=== PATIENT | female | born 1940 | race Caucasian/White ===

== ENCOUNTER 2018-11-19 14:14 | Emergency (ER) | payer MEDICARE, OTHER ==
--- OUTSIDE RECORDS SUMMARY | 2018-11-19 14:32 | XMS REPORT | Continuity of Care Document ---
:1940 External Reference #:[id number] Author Name Ramirez Patiño MD Address [address] [place] [address] Care Team Providers Name Role Phone Ramirez Patiño MD Primary Care Physician Unavailable Payers Date Identification Numbers Payment Provider Subscriber Effective: 2003 Policy Number: [id number] Medicare Part B [place] Group Name: [facility] [address] PayID: [id number] [place] [address] Effective: 2016 Policy Number: [id number] [employer] [place] Group Number: [id number] [address] [address] Group Name: [place] [address] PayID: [id number] Problems Active Problems Provider Date Hyperlipidemia Ramirez Patiño MD Onset: 07/18/2017 Hypothyroidism Ramirez Patiño MD Onset: 07/18/2017 Family History Date Family Member(s) Observation Comments Father due to Old Age () Father Cancer, Prostate Father due to Natural Causes () Mother due to Septicemia () Mother Cancer, Breast Mother due to Natural Causes () Mother DVT Mother Allergies First Brother Heart Disease Second Brother due to Aneurysm, Cerebral () First Sister Asthma Second Sister Aneurysm, Cerebral Third Sister Allergies Social History Type Date Description Comments Sex Unknown Marital Status ETOH Use Denies alcohol use Tobacco Use Reviewed: 08/05/18 Patient has never smoked Smoking Status Reviewed: 08/05/18 Patient has never smoked Allergies, Adverse Reactions, Alerts Active Allergies Reaction Severity Comments Date PCN Diffuse Swelling. 02/09/2003 Penicillin 01/26/2018 Inactive Allergies NKDA 11/04/2014 Medications Active Medications SIG Qnty Indications Ordering Provider Date Atorvastatin Calcium Take 1 Tablet 90tabs Nikkieavamykel, Digant 02/19/2018 10mg Daily MD Erma Tablets Levothyroxine Sodium Take 1 Tablet 90tabs Nikkieavamykel, Digant 03/04/2017 Daily MD Erma 88mcg Tablets Ranitidine HCL take 1 tablet 180tabs Nanavati, Digant 09/20/2015 150mg by mouth 2 MD Erma Tablets times daily Multiple Vitamin 90tabs Nikkieavamykel, Digant 11/08/2014 Tablets MD Erma Sertraline HCL Take 1 Tablet 90tabs Nikkieavati, Digant 11/08/2014 50mg Daily MD Erma Tablets History Medications Shingrix 0.5 milliliters 2unkaroline Patiño, 10/15/2017 - 50mcg intramuscular now Ramirez Ritchie MD 01/26/2018 Suspension Rec and 6 month later Zostavax 1 dose 1units Haroon, 09/20/2015 - intramuscular x 1 Ramirez Ritchie MD 11/14/2015 [id number]/0.65ML Solution Rec Levoxyl take 1 tablet daily 90tabs Haroon, 11/08/2014 - 88mcg Tablets Ramirez Ritchie MD 03/04/2017 Oxybutynin Chloride 1 by mouth every 90tabs Haroon, 11/08/2014 - ER day Ramirez Ritchie MD 07/03/2016 10mg Tablets ER 24HR [facility] Other Provider 11/08/2014 - 10mg Tablets 11/08/2014 Lortab 1 tab every 6 hours 30tabs Haroon, 11/08/2014 - 5-325mg as needed severe Ramirez Ritchie MD 01/15/2017 Tablets pain Gabapentin 1 by mouth three 90caps Haroon, 11/08/2014 - 300mg times a day Ramirez Ritchie MD 07/03/2016 Capsules Omeprazole 1 by mouth every 30caps Haroon, 11/08/2014 - 40mg day Ramirez Ritchie MD 09/20/[address] Sen 1 by mouth every Nanavamykel, 11/08/2014 - 5mg Tablets day Ramirez Ritchie MD 09/20/2015 Actonel 1 by mouth every endo Una Olvera, 11/04/2014 - 35mg Tablets week STAFF APPRAISER 07/03/2016 Ambien 1/2-1 po qhs prn 30tabs 307.41 Kenn Escobar 01/09/2005 - 10mg Tablets sleep 02/19/2018 Butalbital & Kenn Escobar 10/08/2004 - Acetaminophen 10/08/2004 50mg;325 mg Tablets Butalbital 1-2 po bid prn griggs Kenn Escobar 10/08/2004 - Acetaminophen & 02/19/2018 Caffeine 50mg;40mg;325MG Tablets Physical Therapy hip pain/leg pain Shantel Cesar 08/08/2004 - (719.45): evaluate JJ Ruiz 11/05/2004 and treat as needed Physical Therapy dx+sciatica LEFT Shantel Cesar 05/15/2004 - Leg JJ Ruiz 11/05/2004 plan: evaluate & treat Skelaxin One-Two Tabs Q 6-8 40tabs 846.0 Kenn Escobar 12/07/2003 - 400mg HRSPRN 11/05/2004 Tablets Elavil One PO QHS 90tabs Shantel Cesar 11/21/2003 - 10mg Tablets JJ Ruiz 02/19/2018 [place] Thyroid one tab po qd 90tabs Kenn Escobar 09/19/2003 - 90mg 02/19/2018 Tablets Maxzide-25 1 po qam 30tabs 782.3 Kenn Escobar 09/16/2003 - 25mg;37.5 11/21/2003 mg Tablets Celebrex 1 PO bid prn 180caps 846.0 Kenn Escobar 09/16/2003 - 200mg 02/19/2018 Capsules Ambien one to two po qhs 30tabs 307.41 Kenn Escobar 03/10/2003 - 5mg Tablets prn sleep 01/09/2005 Miralax mix as directed prn Onejar 564.00 Shantel Cesar 03/10/2003 - 255gm Powder constipation JJ Ruiz 11/21/2003 Prilosec 1 PO qd 30caps 530.81 Kenn Escobar 12/24/2002 - 20mg Caps 02/19/2018 Maxzide 1 po qam 30tabs 782.3 Kenn Escobar 12/24/2002 - 37.5/25 Tabs 03/10/2003 Elavil 90tabs V70.0 Shantel Cesar 11/10/2002 - 10mg Tablets JJ Ruiz 12/21/2003 Butalbital/Apap/Caff 1-2 po q 4 hrs.prn 90tabs 379.91 Kenn Escobar, 03/2003 - eine 10/08/2004 Tabs Flonase 1 [place] Each 3units Kenn sEcobar, 10/13/2002 - Inhaler Nostril qd 02/19/2018 Celebrex 1 po bid prn 180units Kenn Escobar, 09/02/2002 - 200mg 11/21/2003 Premarin One PO qd 0units Kenn Escobar, 09/02/2002 - .625 02/19/2018 Neurontin 1-2 Caps Q8HR prn 180tabs Kenn Escobar, 09/02/2002 - 100mg 02/19/2018 Tablets Zoloft one qd 90units Kenn Escobar, 09/02/2002 - 50mg 02/19/2018 Lanoxin 1 po qd 30units Kenn Escobar, 09/02/2002 - .25mg 11/05/2004 Diflucan one tab po times 0tabs Kenn Escobar, 09/02/2002 - 150mg Tablet one day 03/10/2003 Deconamine SR Two PO qd prn 180tabs Kenn Escobar, 07/23/2002 - 8mg 02/19/2018 Tablets Celebrex One PO qam 90units Kenn Escobar, 07/23/2002 - 100mg 09/02/2002 Fioricet one - two po q4h 30units Kenn Escobar, 07/23/2002 - prn 03/10/2003 [place] Thyroid 1 tab po qd 30units Shantel Cesar 05/11/2002 - 60mg JJ Ruiz 11/21/2003 Zyrtec One qd 90units Kenn Escobar, 05/07/2002 - 10mg 02/19/2018 Miacalcin one spray 1units Kenn Escobar, 05/07/2002 - Inhaler alternating nares q 03/10/2003 day Actonel One Tablet Q Week 12tabs 307.41 Kenn Escobar, - 35mg Tablets (Sundays) 02/19/2018 Hydrocodone-Acetamin 1 every 6 hours as Unknown - ophen needed 02/19/2018 5-325mg Tablets Medications Administered in Office Medication SIG Qnty Indications Ordering Provider Date Prolia 60 mg/ml Infusion, Schedule 07/13/2018 Injection Prolia 60 mg/ml Infusion, Schedule 01/07/2018 Injection Immunizations CPT Code Status Date Vaccine Reaction Lot # [id number] Given 02/19/2018 Fluzone Highdose Age 65 And [id number] Over Preservative & Antibiotic Free 01971 Given 01/13/2018 Shingrix (Shingles) Zoster Vaccine HZV, Recombinant, Subunit, Adj 41286 Given 10/15/2017 Shingrix (Shingles) Zoster Vaccine HZV, Recombinant, Subunit, Adj 41126 Given 04/17/2017 Pneumococcal 23 Immunization Pt tolerated well [id number] Adult Or Immunosuppressed Patient 94704 Given 04/17/2017 Fluzone Highdose Age 65 And Pt tolerated well [id number] Over Preservative & Antibiotic Free 95734 Given 07/03/2016 Fluzone Highdose Age 65 And [id number] Over Preservative & Antibiotic Free 27779 Given 09/20/2015 Tdap (Adacel) Ages 7 And Above [id number] Only 77400 Given 03/22/2015 Influenza Vac, Quadrivalent, [id number] Split, 0.5mL Dosage, Im Use 19420 Given 03/22/2015 Prevnar 13 Pneumococal [id number] Conjugate Vaccine 51030 Given 05/15/2004 Afluria Or Fluvirin Flu Vac Intramuscular 63810 Given 05/02/2003 Afluria Or Fluvirin Flu Vac Intramuscular 91695 Given 05/02/2003 Afluria Or Fluvirin Flu Vac Intramuscular 21566 Given 05/07/2002 Passive Immunization, Isg Deleted 1998 51476 Given 05/07/2002 Afluria Or Fluvirin Flu Vac Intramuscular 46999 Given 05/14/2001 Afluria Or Fluvirin Flu Vac Intramuscular 40187 Given 05/16/2000 Influenza Virus Vaccine, Whole Virus, Intramuscular Or Jet Inj. Vital Signs Date Vital Result Comment 10/26/2018 1:24pm Body Temperature 97.4 F Weight 145.00 lb Heart Rate 75 /min BP Systolic 118 mmHg BP Diastolic 72 mmHg Respiratory Rate 16 /min Height 62 inches 5'2" O2 % BldC Oximetry 99 % BMI (Body Mass Index) 26.5 kg/m2 08/05/2018 11:18am Body Temperature 97.3 F Weight 144.00 lb Heart Rate 92 /min BP Systolic 122 mmHg BP Diastolic 80 mmHg Respiratory Rate 16 /min Height 62 inches 5'2" O2 % BldC Oximetry 99 % BMI (Body Mass Index) 26.3 kg/m2 07/15/2018 9:44am Body Temperature 97.2 F Weight 145.00 lb Heart Rate 76 /min BP Systolic 120 mmHg BP Diastolic 74 mmHg Respiratory Rate 16 /min Height 62 inches 5'2" O2 % BldC Oximetry 98 % BMI (Body Mass Index) 26.5 kg/m2 07/13/2018 1:47pm Body Temperature 98.8 F Weight 148.00 lb Heart Rate 81 /min BP Systolic 122 mmHg BP Diastolic 74 mmHg O2 % BldC Oximetry 98 % 06/01/2018 10:08am Weight 143.00 lb Heart Rate 90 /min BP Systolic 122 mmHg BP Diastolic 80 mmHg Respiratory Rate 16 /min Height 62 inches 5'2" O2 % BldC Oximetry 98 % BMI (Body Mass Index) 26.2 kg/m2 02/19/2018 1:48pm Body Temperature 97.2 F Weight 137.00 lb Heart Rate 80 /min BP Systolic 128 mmHg BP Diastolic 70 mmHg Respiratory Rate 16 /min Height 62 inches 5'2" O2 % BldC Oximetry 97 % BMI (Body Mass Index) 25.1 kg/m2 01/26/2018 8:33am Weight 139.00 lb Heart Rate 82 /min BP Systolic 133 mmHg BP Diastolic 86 mmHg Respiratory Rate 16 /min Height 62 inches 5'2" O2 % BldC Oximetry 98 % BMI (Body Mass Index) 25.4 kg/m2 01/07/2018 3:33pm Body Temperature 99.1 F Weight 136.00 lb Heart Rate 71 /min BP Systolic 132 mmHg BP Diastolic 88 mmHg O2 % BldC Oximetry 97 % 10/15/2017 10:16am Body Temperature 98.3 F Weight 140.00 lb Heart Rate 76 /min BP Systolic 100 mmHg BP Diastolic 64 mmHg Respiratory Rate 16 /min Height 62 inches 5'2" O2 % BldC Oximetry 96 % BMI (Body Mass Index) 25.6 kg/m2 07/18/2017 11:22am Body Temperature 97.6 F Weight 140.00 lb Heart Rate 92 /min BP Systolic 114 mmHg BP Diastolic 76 mmHg Respiratory Rate 16 /min Height 62 inches 5'2" O2 % BldC Oximetry 95 % BMI (Body Mass Index) 25.6 kg/m2 04/17/2017 11:41am Body Temperature 97.0 F Weight 141.00 lb Heart Rate 83 /min BP Systolic 118 mmHg BP Diastolic 67 mmHg Respiratory Rate 16 /min Height 62 inches 5'2" O2 % BldC Oximetry 97 % BMI (Body Mass Index) 25.8 kg/m2 01/15/2017 10:56am Body Temperature 97.4 F Weight 141.00 lb Heart Rate 82 /min BP Systolic 120 mmHg BP Diastolic 72 mmHg Respiratory Rate 16 /min Height 62 inches 5'2" O2 % BldC Oximetry 96 % BMI (Body Mass Index) 25.8 kg/m2 12/02/2016 10:09am Body Temperature 97.5 F Weight 140.31 lb Heart Rate 85 /min BP Systolic 147 mmHg BP Diastolic 81 mmHg Respiratory Rate 16 /min Height 62 inches 5'2" O2 % BldC Oximetry 97 % BMI (Body Mass Index) 25.7 kg/m2 07/03/2016 1:54pm Body Temperature 98.4 F Weight 140.00 lb Heart Rate 84 /min BP Systolic 122 mmHg BP Diastolic 80 mmHg Respiratory Rate 16 /min Height 62 inches 5'2" O2 % BldC Oximetry 97 % BMI (Body Mass Index) 25.6 kg/m2 12/06/2015 11:45am Body Temperature 98.6 F Weight 140.00 lb Heart Rate 82 /min BP Systolic 124 mmHg BP Diastolic 74 mmHg Respiratory Rate 16 /min Height 62 inches 5'2" O2 % BldC Oximetry 97 % BMI (Body Mass Index) 25.6 kg/m2 11/28/2015 10:07am Body Temperature 98.2 F Weight 140.00 lb Heart Rate 87 /min BP Systolic 126 mmHg BP Diastolic 78 mmHg Respiratory Rate 16 /min Height 62 inches 5'2" O2 % BldC Oximetry 96 % BMI (Body Mass Index) 25.6 kg/m2 11/14/2015 11:00am Body Temperature 99.0 F Weight 138.00 lb Heart Rate 83 /min BP Systolic 120 mmHg BP Diastolic 86 mmHg Respiratory Rate 16 /min Height 62 inches 5'2" O2 % BldC Oximetry 96 % BMI (Body Mass Index) 25.2 kg/m2 09/20/2015 10:01am Body Temperature 99.2 F Weight 143.00 lb Heart Rate 78 /min BP Systolic 126 mmHg BP Diastolic 78 mmHg Respiratory Rate 18 /min Height 62 inches 5'2" O2 % BldC Oximetry 98 % BMI (Body Mass Index) 26.2 kg/m2 03/22/2015 10:08am Body Temperature 98.5 F Weight 138.50 lb Heart Rate 82 /min BP Systolic 130 mmHg BP Diastolic 76 mmHg Respiratory Rate 16 /min Height 62 inches 5'2" O2 % BldC Oximetry 98 % BMI (Body Mass Index) 25.3 kg/m2 12/20/2014 1:03pm Body Temperature 98.1 F Weight 140.12 lb Heart Rate 75 /min BP Systolic 122 mmHg BP Diastolic 76 mmHg Respiratory Rate 16 /min Height 62 inches 5'2" O2 % BldC Oximetry 97 % BMI (Body Mass Index) 25.6 kg/m2 11/08/2014 8:17am Weight 141.00 lb Heart Rate 69 /min BP Systolic 148 mmHg BP Diastolic 89 mmHg Height 62 inches 5'2" BMI (Body Mass Index) 25.8 kg/m2 Right Visual Acuity Distance 20/30 with glasses Left Visual Acuity Distance 20/30 11/05/2004 3:36pm Body Temperature 98.0 F Weight 136.00 lb Heart Rate 92 /min BP Systolic 122 mmHg BP Diastolic 78 mmHg Respiratory Rate 20 /min Height 62 inches 5'2" BMI (Body Mass Index) 24.9 kg/m2 Right Visual Acuity Distance 20/20 With With Out Corrective Lenses. Left Visual Acuity Distance 20/25 06/06/2004 2:28pm Body Temperature 97.0 F Heart Rate 87 /min BP Systolic 134 mmHg BP Diastolic 80 mmHg 05/15/2004 1:21pm Weight 129.00 lb BP Systolic 142 mmHg BP Diastolic 96 mmHg 12/21/2003 8:45am Body Temperature 120.0 F BP Systolic 128 mmHg BP Diastolic 78 mmHg 12/07/2003 3:40pm Body Temperature 97.5 F Heart Rate 84 /min BP Systolic 132 mmHg BP Diastolic 88 mmHg Respiratory Rate 16 /min 11/21/2003 10:13am Weight 134.00 lb CV=605/35 500/40 1000/40 8000/40 Heart Rate 90 /min ZW=880/35 500/35 1000/45 2000/35 8000/55 BP Systolic 118 mmHg BP Diastolic 80 mmHg Respiratory Rate 16 /min Urine Dipstick - Blood NEGATIVE Urine Dipstick - Protein NEGATIVE Urine Dipstick - Glucose NEGATIVE 11/01/2003 2:16pm Body Temperature 98.0 F Heart Rate 88 /min BP Systolic 130 mmHg BP Diastolic 86 mmHg Respiratory Rate 24 /min 03/10/2003 12:47pm BP Systolic 122 mmHg BP Diastolic 74 mmHg 02/09/2003 10:26am BP Systolic 114 mmHg BP Diastolic 76 mmHg 01/14/2003 10:58am BP Systolic 112 mmHg BP Diastolic 70 mmHg 12/31/2002 11:12am BP Systolic 108 mmHg BP Diastolic 64 mmHg 12/24/2002 12:34pm BP Systolic 128 mmHg BP Diastolic 86 mmHg 11/10/2002 8:25am Weight 138.00 lb Heart Rate 88 /min BP Systolic 104 mmHg BP Diastolic 72 mmHg Respiratory Rate 18 /min Urine Dipstick - Blood NEGATIVE Urine Dipstick - Protein NEGATIVE Urine Dipstick - Glucose NEGATIVE Left Visual Acuity Distance 09/02/2002 2:19pm Body Temperature 97.6 F Heart Rate 80 /min BP Systolic 150 mmHg BP Diastolic 92 mmHg Results Test Date Facility Test Result H/L Range Note CBC with Auto Diff-fcmg 10/19/2018 [facility] W[facility] 4.3 K/uL 4.1-11.0 1 RBC 4.11 M/uL 4.00-5.40 Hemoglobin 13.1 gm/dL 12.0-16.0 Hematocrit 38.9 % 36.0-47.0 MCV 94.6 fL 80.0-97.0 MCH 31.9 pg 27.0-32.0 MCHC 33.7 g/dL 32.0-36.0 RDW 13.3 % 11.5-14.5 PLT Count 191 K/ul 140-400 MPV 8.9 FL 7.1-10.7 Neutrophil 44.1 % 35.0-75.0 Lymphocyte 39.3 % 16.0-52.0 Monocyte 11.5 % High 2.0-10.0 Eosinophil 4.1 % 0.0-5.0 Basophil 1.0 % 0.0-4.0 Abs Neutrophils 1.9 K/uL Low 2.1-8.0 Abs Lymphocytes 1.7 K/uL 0.8-5.5 Abs Monocytes 0.5 K/uL 0.1-1.0 Abs Eosinophils 0.2 K/uL 0.0-0.5 Abs Basophils 0.0 K/uL 0.0-0.3 Comprehensive Met Panel-[facility]G 10/19/2018 [facility] Sodium 140 mmol/L 135- 146 2 Potassium 4.4 mmol/L 3.5-5.2 Chloride# 105 mmol/L 97-110 3 Carbon Dioxide 27 mmol/L 24-34 Calcium 9.3 mg/dL 8.5-10.5 4 Glucose 91 mg/dL 70-105 BUN 12 mg/dL 6-26 Creatinine 0.8 mg/dL 0.5-1.4 Total Protein 5.9 g/dL Low 6.0-8.0 Albumin 3.9 g/dL 3.6-4.9 Globulin 2.0 g/dL 2.0-3.5 A/G Ratio 2.0 Ratio 1.0-2.2 Total Bilirubin 0.7 mg/dL 0.1-1.3 Alkaline Phosphatase 30 U/L 24-140 Alt 11 U/L 3-42 Ast 20 U/L 8-42 Anion Gap 8 mmol/L 5-15 5 Female Egfr 69 >60 6 Male Egfr 84 >60 7 Lipid 10/19/2018 [facility] Cholesterol 195 mg/dL 50-199 Triglycerides 97 mg/dL 30-200 HDL 59 mg/dL 35-85 8 Chol/ HDL Ratio 3.3 ratio Low 3.7-5.6 VLDL 19 mg/dL 2-29 LDL (Calc) 117 mg/dL High 20-99 9 Laboratory test finding 10/19/2018 [facility] Vitamin B12 427 pg/mL 180- 914 Vitamin D 25 Hydroxy 30 ng/mL 30-100 10 Laboratory test finding 07/08/2018 [facility] TSH 1.37 uIU/mL 0.35-4.94 Lipid 07/08/2018 [facility] Cholesterol 196 mg/dL 50-199 Triglycerides 115 mg/dL 30-200 HDL 58 mg/dL 35-85 11 Chol/ HDL Ratio 3.4 ratio Low 3.7-5.6 VLDL 23 mg/dL 2-29 LDL (Calc) 115 mg/dL High 20-99 12 Laboratory test finding 07/08/2018 [facility] Vitamin D 25 Hydroxy 41 ng/mL 30-100 13 Vitamin B12 456 pg/mL 180-914 Comprehensive Met Panel-[facility] 07/08/2018 [facility] Sodium 145 mmol/L 135- 146 14 Potassium 4.7 mmol/L 3.5-5.2 Chloride# 107 mmol/L 97-110 15 Carbon Dioxide 30 mmol/L 24-34 Glucose 87 mg/dL 70-105 BUN 18 mg/dL 6-26 Creatinine 0.9 mg/dL 0.5-1.4 Calcium 9.5 mg/dL 8.5-10.2 Total Protein 6.1 g/dL 6.0-8.0 Albumin 4.0 g/dL 3.6-4.9 Globulin 2.1 g/dL 2.0-3.5 A/G Ratio 1.9 Ratio 1.0-2.2 Total Bilirubin 0.7 mg/dL 0.1-1.3 Alkaline Phosphatase 35 U/L 24-140 Alt 8 U/L 3-42 Ast 15 U/L 8-42 Safia Egfr >60 >60 16 Non Safia Egfr >60 >60 17 Anion Gap 8 mmol/L 5-15 18 CBC with Auto Diff-fcmg 07/08/2018 [facility] WBC 4.2 K/uL 4.1-11.0 RBC 4.37 M/uL 4.00-5.40 Hemoglobin 13.8 gm/dL 12.0-16.0 Hematocrit 40.2 % 36.0-47.0 MCV 92.0 fL 80.0-97.0 MCH 31.6 pg 27.0-32.0 MCHC 34.3 g/dL 32.0-36.0 RDW 12.8 % 11.5-14.5 PLT Count 196 K/ul 140-400 MPV 9.0 FL 7.1-10.7 Neutrophil 45.8 % 35.0-75.0 Lymphocyte 42.0 % 16.0-52.0 Monocyte 8.7 % 2.0-10.0 Eosinophil 2.7 % 0.0-5.0 Basophil 0.8 % 0.0-4.0 Abs Neutrophils 1.9 K/uL Low 2.1-8.0 Abs Lymphocytes 1.8 K/uL 0.8-5.5 Abs Monocytes 0.4 K/uL 0.1-1.0 Abs Eosinophils 0.1 K/uL 0.0-0.5 Abs Basophils 0.0 K/uL 0.0-0.3 CBC with Auto Diff-fcmg 06/01/2018 [facility] WBC 4.2 K/uL 4.1-11.0 19 RBC 4.03 M/uL 4.00-5.40 Hemoglobin 12.8 gm/dL 12.0-16.0 Hematocrit 37.1 % 36.0-47.0 MCV 92.1 fL 80.0-97.0 MCH 31.9 pg 27.0-32.0 MCHC 34.7 g/dL 32.0-36.0 RDW 12.7 % 11.5-14.5 PLT Count 203 K/ul 140-400 MPV 8.8 FL 7.1-10.7 Neutrophil 43.4 % 35.0-75.0 Lymphocyte 44.0 % 16.0-52.0 Monocyte 9.5 % 2.0-10.0 Eosinophil 2.2 % 0.0-5.0 Basophil 0.9 % 0.0-4.0 Abs Neutrophils 1.8 K/uL Low 2.1-8.0 Abs Lymphocytes 1.8 K/uL 0.8-5.5 Abs Monocytes 0.4 K/uL 0.1-1.0 Abs Eosinophils 0.1 K/uL 0.0-0.5 Abs Basophils 0.0 K/uL 0.0-0.3 Comprehensive Met Panel-[facility] 06/01/2018 [facility] Sodium 140 mmol/L 135- 146 20 Potassium 4.1 mmol/L 3.5-5.2 Chloride# 106 mmol/L 97-110 21 Carbon Dioxide 28 mmol/L 24-34 Glucose 74 mg/dL 70-105 BUN 16 mg/dL 6-26 Creatinine 0.8 mg/dL 0.5-1.4 Calcium 9.5 mg/dL 8.5-10.2 Total Protein 6.2 g/dL 6.0-8.0 Albumin 3.9 g/dL 3.6-4.9 Globulin 2.3 g/dL 2.0-3.5 A/G Ratio 1.7 Ratio 1.0-2.2 Total Bilirubin 0.6 mg/dL 0.1-1.3 Alkaline Phosphatase 38 U/L 24-140 Alt 8 U/L 3-42 Ast 16 U/L 8-42 Safia Egfr >60 >60 22 Non Safia Egfr >60 >60 23 Anion Gap 6 mmol/L 5-15 24 1 Urinalysis By Machine (In 06/01/2018 Done In [facility] Z#Color Yellow Ho Z#Appearance Clear Urine,Leukocytes - Nitrite - Urobilinogen - Urine,Protein - Z#PH Urine 6.0 Z#Blood, Urine - Z#Specific Mckean 1.015 Z#Ketones Urine - Z#Bili,Urine - Z#Glu Urine - CBC with Auto Diff-fcmg 01/26/2018 [facility] WBC 4.8 K/uL 4.1-11.0 25 RBC 4.21 M/uL 4.00-5.40 Hemoglobin 12.9 gm/dL 12.0-16.0 Hematocrit 38.6 % 36.0-47.0 MCV 91.7 fL 80.0-97.0 MCH 30.7 pg 27.0-32.0 MCHC 33.5 g/dL 32.0-36.0 RDW 12.6 % 11.5-14.5 PLT Count 250 K/ul 140-400 MPV 8.2 FL 7.1-10.7 Neutrophil 41.1 % 35.0-75.0 Lymphocyte 44.9 % 16.0-52.0 Monocyte 9.7 % 2.0-10.0 Eosinophil 3.1 % 0.0-5.0 Basophil 1.2 % 0.0-4.0 Abs Neutrophils 2.0 K/uL Low 2.1-8.0 Abs Lymphocytes 2.2 K/uL 0.8-5.5 Abs Monocytes 0.5 K/uL 0.1-1.0 Abs Eosinophils 0.1 K/uL 0.0-0.5 Abs Basophils 0.1 K/uL 0.0-0.3 Comprehensive Met Panel-[facility]G 01/26/2018 [facility] Sodium 144 mmol/L 135- 146 26 Potassium 4.3 mmol/L 3.5-5.2 Chloride# 105 mmol/L 97-110 27 Carbon Dioxide 26 mmol/L 24-34 Glucose 63 mg/dL Low 70-105 BUN 23 mg/dL 6-26 Creatinine 0.8 mg/dL 0.5-1.4 Calcium 9.8 mg/dL 8.5-10.2 Total Protein 6.4 g/dL 6.0-8.0 Albumin 4.0 g/dL 3.6-4.9 Globulin 2.4 g/dL 2.0-3.5 A/G Ratio 1.7 Ratio 1.0-2.2 Total Bilirubin 0.4 mg/dL 0.1-1.3 Alkaline Phosphatase 52 U/L 24-140 Alt 10 U/L 3-42 Ast 17 U/L 8-42 Safia Egfr >60 >60 28 Non Safia Egfr >60 >60 29 Anion Gap 13 mmol/L 5-15 30 Lipid 01/26/2018 [facility] Cholesterol 250 mg/dL High 50-199 Triglycerides 143 mg/dL 30-200 HDL 56 mg/dL 35-85 31 Chol/ HDL Ratio 4.5 ratio 3.7-5.6 VLDL 29 mg/dL 2-29 LDL (Calc) 166 mg/dL High 20-99 32 Laboratory test finding 01/26/2018 [facility] TSH 3.32 uIU/mL 0.35-4.94 Vitamin B12 901 pg/mL 180-914 Vitamin D 25 Hydroxy 46 ng/mL 30-100 33 Laboratory test finding 10/08/2017 [facility] TSH 3.74 uIU/mL 0.35-4.94 Vitamin B12 270 pg/mL 180-914 Vitamin D 25 Hydroxy 29 ng/mL Low 30-100 34 Lipid 10/08/2017 [facility] Cholesterol 252 mg/dL High 50-199 Triglycerides 156 mg/dL 30-200 HDL 57 mg/dL 35-85 35 Chol/ HDL Ratio 4.4 ratio 3.7-5.6 VLDL 31 mg/dL High 2-29 LDL (Calc) 164 mg/dL High 20-99 36 Comprehensive Met Panel-[facility] 10/08/2017 [facility] Sodium 145 mmol/L 135- 146 37 Potassium 4.4 mmol/L 3.5-5.2 Chloride# 109 mmol/L 97-110 38 Carbon Dioxide 28 mmol/L 24-34 Glucose 84 mg/dL 70-105 BUN 20 mg/dL 6-26 Creatinine 0.8 mg/dL 0.5-1.4 Calcium 9.4 mg/dL 8.5-10.2 Total Protein 6.0 g/dL 6.0-8.0 Albumin 3.9 g/dL 3.6-4.9 Globulin 2.1 g/dL 2.0-3.5 A/G Ratio 1.9 Ratio 1.0-2.2 Total Bilirubin 0.6 mg/dL 0.1-1.3 Alkaline Phosphatase 42 U/L 24-140 Alt 10 U/L 3-42 Ast 17 U/L 8-42 Safia Egfr >60 >60 39 Non Safia Egfr >60 >60 40 Anion Gap 8 mmol/L 5-15 41 CBC with Auto Diff-fcmg 10/08/2017 [facility] WBC 4.6 K/uL 4.1-11.0 RBC 4.10 M/uL 4.00-5.40 Hemoglobin 13.0 gm/dL 12.0-16.0 Hematocrit 37.8 % 36.0-47.0 MCV 92.3 fL 80.0-97.0 MCH 31.7 pg 27.0-32.0 MCHC 34.4 g/dL 32.0-36.0 RDW 12.9 % 11.5-14.5 PLT Count 212 K/ul 140-400 MPV 8.3 FL 7.1-10.7 Neutrophil 47.0 % 35.0-75.0 Lymphocyte 39.6 % 16.0-52.0 Monocyte 9.0 % 2.0-10.0 Eosinophil 3.0 % 0.0-5.0 Basophil 1.4 % 0.0-4.0 Abs Neutrophils 2.1 K/uL 2.1-8.0 Abs Lymphocytes 1.8 K/uL 0.8-5.5 Abs Monocytes 0.4 K/uL 0.1-1.0 Abs Eosinophils 0.1 K/uL 0.0-0.5 Abs Basophils 0.1 K/uL 0.0-0.3 Comprehensive Met Panel-[facility] 07/14/2017 [facility] Sodium 140 mmol/L 135- 146 42 Potassium 4.3 mmol/L 3.5-5.2 Chloride# 103 mmol/L 97-110 43 Carbon Dioxide 30 mmol/L 24-34 Glucose 87 mg/dL 70-105 BUN 18 mg/dL 6-26 Creatinine 0.8 mg/dL 0.5-1.4 Calcium 9.6 mg/dL 8.5-10.2 Total Protein 6.3 g/dL 6.0-8.0 Albumin 4.1 g/dL 3.6-4.9 Globulin 2.2 g/dL 2.0-3.5 A/G Ratio 1.9 Ratio 1.0-2.2 Total Bilirubin 0.5 mg/dL 0.1-1.3 Alkaline Phosphatase 44 U/L 24-140 Alt 9 U/L 3-42 Ast 19 U/L 8-42 Safia Egfr >60 >60 44 Non Safia Egfr >60 >60 45 Anion Gap 7 mmol/L 7-16 46 Lipid 07/14/2017 [facility] Cholesterol 248 mg/dL High 50-199 Triglycerides 116 mg/dL 30-200 HDL 51 mg/dL 35-85 47 Chol/ HDL Ratio 4.9 ratio 3.7-5.6 VLDL 23 mg/dL 2-29 LDL (Calc) 174 mg/dL High 20-99 48 Laboratory test finding 07/14/2017 [facility] Vitamin B12 296 pg/mL 180- 914 Vitamin D 25 Hydroxy 42 ng/mL 30-100 49 CBC With Auto Diff 07/14/2017 [facility] WBC 5.2 K/uL 4.1-11.0 RBC 4.19 M/uL 4.00-5.40 Hemoglobin 13.3 gm/dL 12.0-16.0 Hematocrit 38.7 % 36.0-47.0 MCV 92.3 fL 80.0-97.0 MCH 31.8 pg 27.0-32.0 MCHC 34.4 g/dL 32.0-36.0 RDW 12.9 % 11.5-14.5 PLT Count 213 K/ul 140-400 MPV 8.8 FL 7.1-10.7 Neutrophil 50.7 % 35.0-75.0 Lymphocyte 36.4 % 16.0-52.0 Monocyte 8.6 % 2.0-10.0 Eosinophil 3.3 % 0.0-5.0 Basophil 1.0 % 0.0-4.0 Abs Neutrophils 2.7 K/uL 2.1-8.0 Abs Lymphocytes 1.9 K/uL 0.8-5.5 Abs Monocytes 0.5 K/uL 0.1-1.0 Abs Eosinophils 0.2 K/uL 0.0-0.5 Abs Basophils 0.1 K/uL 0.0-0.3 CBC With Auto Diff 04/10/2017 [facility] WBC 4.7 K/uL 4.1-11.0 RBC 4.28 M/uL 4.00-5.40 Hemoglobin 13.5 gm/dL 12.0-16.0 Hematocrit 39.4 % 36.0-47.0 MCV 92.0 fL 80.0-97.0 MCH 31.5 pg 27.0-32.0 MCHC 34.3 g/dL 32.0-36.0 RDW 13.1 % 11.5-14.5 PLT Count 243 K/ul 140-400 MPV 7.9 FL 7.1-10.7 Neutrophil 47.6 % 35.0-75.0 Lymphocyte 39.5 % 16.0-52.0 Monocyte 8.6 % 2.0-10.0 Eosinophil 3.0 % 0.0-5.0 Basophil 1.3 % 0.0-4.0 Abs Neutrophils 2.2 K/uL 2.1-8.0 Abs Lymphocytes 1.9 K/uL 0.8-5.5 Abs Monocytes 0.4 K/uL 0.1-1.0 Abs Eosinophils 0.1 K/uL 0.0-0.5 Abs Basophils 0.1 K/uL 0.0-0.3 Comprehensive Met Panel-[facility] 04/10/2017 [facility] Sodium 140 mmol/L 135- 146 50 Potassium 4.4 mmol/L 3.5-5.2 Chloride# 103 mmol/L 97-110 51 Carbon Dioxide 30 mmol/L 24-34 Glucose 85 mg/dL 70-105 Creatinine 0.9 mg/dL 0.5-1.4 Calcium 9.6 mg/dL 8.5-10.2 Total Protein 6.5 g/dL 6.0-8.0 Albumin 3.9 g/dL 3.6-4.9 Globulin 2.6 g/dL 2.0-3.5 A/G Ratio 1.5 Ratio 1.0-2.2 Total Bilirubin 0.5 mg/dL 0.1-1.3 Alkaline Phosphatase 52 U/L 24-140 Alt 9 U/L 3-42 Ast 16 U/L 8-42 Safia Egfr >60 >60 52 Non Safia Egfr >60 >60 53 Anion Gap 7 mmol/L 7-16 54 BUN 20 mg/dL 6-26 Lipid 04/10/2017 [facility] Cholesterol 243 mg/dL High 50-199 Triglycerides 167 mg/dL 30-200 HDL 54 mg/dL 35-85 55 Chol/ HDL Ratio 4.5 ratio 3.7-5.6 VLDL 33 mg/dL High 2-29 LDL (Calc) 155 mg/dL High 20-99 56 1 Urinalysis By Machine (In 12/02/2016 Done In [facility] Z#Color yellow Ho Z#Appearance clear Urine,Leukocytes - Nitrite - Urobilinogen - Urine,Protein - Z#PH Urine 6.0 Z#Blood, Urine - Z#Specific Mckean 1.015 Z#Ketones Urine - Z#Bili,Urine - Z#Glu Urine - CBC With Auto Diff 12/02/2016 [facility] WBC 4.6 K/uL 4.1-11.0 57 RBC 4.20 M/uL 4.00-5.40 Hemoglobin 13.1 gm/dL 12.0-16.0 Hematocrit 39.3 % 36.0-47.0 MCV 93.6 fL 80.0-97.0 MCH 31.3 pg 27.0-32.0 MCHC 33.5 g/dL 32.0-36.0 RDW 13.4 % 11.5-14.5 PLT Count 226 K/ul 140-400 Neutrophil 42.6 % 35.0-75.0 Lymphocyte 42.4 % 16.0-52.0 Monocyte 10.4 % High 2.0-10.0 Eosinophil 3.1 % 0.0-5.0 Basophil 1.5 % 0.0-4.0 Abs Neutrophils 2.0 K/uL Low 2.1-8.0 Abs Lymphocytes 2.0 K/uL 0.8-5.5 Abs Monocytes 0.5 K/uL 0.1-1.0 Abs Eosinophils 0.1 K/uL 0.0-0.5 Abs Basophils 0.1 K/uL 0.0-0.3 Comprehensive Metabolic (CMP) 12/02/2016 [facility] Sodium 141 mmol/L 135- 146 58 Potassium 4.2 mmol/L 3.5-5.2 Chloride# 104 mmol/L 97-110 59 Carbon Dioxide 28 mmol/L 24-34 Glucose 77 mg/dL 70-105 BUN 16 mg/dL 6-26 Creatinine 0.7 mg/dL 0.5-1.4 Calcium 9.7 mg/dL 8.5-10.2 Total Protein 6.4 g/dL 6.0-8.0 Albumin 4.1 g/dL 3.6-4.9 Globulin 2.3 g/dL 2.0-3.5 A/G Ratio 1.8 Ratio 1.0-2.2 Total Bilirubin 0.5 mg/dL 0.1-1.3 Alkaline Phosphatase 52 U/L 24-140 Alt 11 U/L 3-42 Ast 18 U/L 8-42 Safia Egfr >60 >60 60 Non Safia Egfr >60 >60 61 Anion Gap 13 mmol/L 7-16 62 Lipid 12/02/2016 [facility] Cholesterol 243 mg/dL High 50-199 Triglycerides 134 mg/dL 30-200 HDL 56 mg/dL 35-85 63 Chol/ HDL Ratio 4.3 ratio 3.7-5.6 VLDL 27 mg/dL 2-29 LDL (Calc) 160 mg/dL High 20-99 64 Laboratory test finding 12/02/2016 [facility] Vitamin B12 337 pg/mL 180- 914 Vit D,25 Hydroxy 32 ng/mL 31-100 Esr 2 mm/hr 0-20 TSH 1.64 uIU/mL 0.35-4.94 CBC With Auto Diff 07/03/2016 [facility] WBC 6.1 K/uL 4.1-11.0 65 RBC 4.41 M/uL 4.00-5.40 Hemoglobin 13.8 gm/dL 12.0-16.0 Hematocrit 40.7 % 36.0-47.0 MCV 92.3 fL 80.0-97.0 MCH 31.4 pg 27.0-32.0 MCHC 34.0 g/dL 32.0-36.0 RDW 12.7 % 11.5-14.5 PLT Count 241 K/ul 140-400 Neutrophil 54.2 % 35.0-75.0 Lymphocyte 34.2 % 16.0-52.0 Monocyte 8.9 % 2.0-10.0 Eosinophil 1.9 % 0.0-5.0 Basophil 0.8 % 0.0-4.0 Abs Neutrophils 3.3 K/uL 2.1-8.0 Abs Lymphocytes 2.1 K/uL 0.8-5.5 Abs Monocytes 0.5 K/uL 0.1-1.0 Abs Eosinophils 0.1 K/uL 0.0-0.5 Abs Basophils 0.0 K/uL 0.0-0.3 Comprehensive Metabolic (CMP) 07/03/2016 [facility] Sodium 140 mmol/L 134- 142 Potassium 4.2 mmol/L 3.5-5.2 Chloride 104 mmol/L 97-109 Carbon Dioxide 29 mmol/L 24-34 Glucose 91 mg/dL 70-105 BUN 16 mg/dL 6-26 Creatinine 0.8 mg/dL 0.5-1.4 Calcium 9.5 mg/dL 8.5-10.2 Total Protein 6.4 g/dL 6.0-8.0 Albumin 3.9 g/dL 3.6-4.9 Globulin 2.5 g/dL 2.0-3.5 A/G Ratio 1.6 Ratio 1.0-2.2 Total Bilirubin 0.5 mg/dL 0.1-1.3 Alkaline Phosphatase 45 U/L 24-140 Alt 8 U/L 3-42 Ast 16 U/L 8-42 Anion Gap 11 mmol/L 6-14 Safia Egfr >60 >60 66 Non Safia Egfr >60 >60 67 Laboratory test 07/03/2016 [facility] TSH 0.77 uIU/mL 0.35-4.94 finding C Diff Toxin 11/29/2015 [facility] Specimen Description STOOL 68 B/PCR-RL C Diff Toxin B NEGATIVE (Neg) 027 Nap1 B1 NEGATIVE (Neg) Comment NOTE: IF REFLEX <SEE NOTE> 69 Laboratory test finding 11/29/2015 [facility] Giard/Cryptosp Exam SEE NOTE 70 Enteric Pathogens By PCR SEE NOTE 71 CBC With Auto Diff 11/28/2015 [facility] WBC 4.6 K/uL 4.1-11.0 72 RBC 4.19 M/uL 4.00-5.40 Hemoglobin 13.2 gm/dL 12.0-16.0 Hematocrit 38.7 % 36.0-47.0 MCV 92.5 fL 80.0-97.0 MCH 31.5 pg 27.0-32.0 MCHC 34.1 g/dL 32.0-36.0 RDW 12.7 % 11.5-14.5 PLT Count 220 K/ul 140-400 Neutrophil 47.6 % 35.0-75.0 Lymphocyte 36.4 % 16.0-52.0 Monocyte 11.4 % High 2.0-10.0 Eosinophil 3.3 % 0.0-5.0 Basophil 1.3 % 0.0-4.0 Abs Neutrophils 2.2 K/uL 2.1-8.0 Abs Lymphocytes 1.7 K/uL 0.8-5.5 Abs Monocytes 0.5 K/uL 0.1-1.0 Abs Eosinophils 0.2 K/uL 0.0-0.5 Abs Basophils 0.1 K/uL 0.0-0.3 Comprehensive Metabolic (CMP) 11/28/2015 [facility] Sodium 140 mmol/L 134- 142 Potassium 4.2 mmol/L 3.5-5.2 Chloride 105 mmol/L 97-109 Carbon Dioxide 29 mmol/L 24-34 Glucose 69 mg/dL Low 70-105 BUN 20 mg/dL 6-26 Creatinine 0.8 mg/dL 0.5-1.4 Calcium 9.5 mg/dL 8.5-10.2 Total Protein 6.1 g/dL 6.0-8.0 Albumin 3.7 g/dL 3.6-4.9 Globulin 2.4 g/dL 2.0-3.5 A/G Ratio 1.5 Ratio 1.0-2.2 Total Bilirubin 0.6 mg/dL 0.1-1.3 Alkaline Phosphatase 48 U/L 24-140 Alt 10 U/L 3-42 Ast 17 U/L 8-42 Anion Gap 10 mmol/L 6-14 Safia Egfr >60 >60 73 Non Safia Egfr >60 >60 74 Laboratory test 09/28/2015 Done [facility] Occult Blood NEGATIVE GUAIAC3 finding #3 - Stool CBC With Auto Diff 09/28/2015 [facility] WBC 5.1 K/uL 4.1-11. 0 RBC 4.32 M/uL 4.00-5.40 Hemoglobin 13.5 gm/dL 12.0-16.0 Hematocrit 40.8 % 36.0-47.0 MCV 94.4 fL 80.0-97.0 MCH 31.3 pg 27.0-32.0 MCHC 33.2 g/dL 32.0-36.0 RDW 13.0 % 11.5-14.5 PLT Count 219 K/ul 140-400 Neutrophil 52.2 % 35.0-75.0 Lymphocyte 31.7 % 16.0-52.0 Monocyte 8.9 % 2.0-10.0 Eosinophil 5.8 % High 0.0-5.0 Basophil 1.4 % 0.0-4.0 Abs Neutrophils 2.7 K/uL 2.1-8.0 Abs Lymphocytes 1.6 K/uL 0.8-5.5 Abs Monocytes 0.5 K/uL 0.1-1.0 Abs Eosinophils 0.3 K/uL 0.0-0.5 Abs Basophils 0.1 K/uL 0.0-0.3 Comprehensive Metabolic (CMP) 09/28/2015 [facility] Sodium 139 mmol/L 134- 142 Potassium 4.1 mmol/L 3.5-5.2 Chloride 104 mmol/L 97-109 Carbon Dioxide 31 mmol/L 24-34 Glucose 76 mg/dL 70-105 BUN 17 mg/dL 6-26 Creatinine 0.8 mg/dL 0.5-1.4 Calcium 9.1 mg/dL 8.5-10.2 Total Protein 6.4 g/dL 6.0-8.0 Albumin 3.8 g/dL 3.6-4.9 Globulin 2.6 g/dL 2.0-3.5 A/G Ratio 1.5 Ratio 1.0-2.2 Total Bilirubin 0.7 mg/dL 0.1-1.3 Alkaline Phosphatase 54 U/L 24-140 Alt 10 U/L 3-42 Ast 18 U/L 8-42 Anion Gap 8 mmol/L 6-14 Safia Egfr >60 >60 75 Non Safia Egfr >60 >60 76 Lipid 09/28/2015 [facility] Cholesterol 253 mg/dL High 50-199 Triglycerides 134 mg/dL 30-200 HDL 63 mg/dL 35-85 77 Chol/ HDL Ratio 4.0 ratio 3.7-5.6 VLDL 27 mg/dL 2-29 LDL (Calc) 163 mg/dL High 20-99 78 Laboratory test finding 09/28/2015 [facility] TSH 3.14 uIU/mL 0.35-4.94 Vitamin B12 412 pg/mL 180-914 Vit D,25 Hydroxy 43 ng/mL 31-100 CBC With Auto Diff 03/22/2015 [facility] WBC 7.0 K/uL 4.1-11.0 79 RBC 4.47 M/uL 4.00-5.40 Hemoglobin 13.8 gm/dL 12.0-16.0 Hematocrit 43.3 % 36.0-47.0 MCV 96.9 fL 80.0-97.0 MCH 30.8 pg 27.0-32.0 MCHC 31.8 g/dL Low 32.0-36.0 RDW 13.1 % 11.5-14.5 PLT Count 196 K/ul 140-400 Neutrophil 67.9 % 35.0-75.0 Lymphocyte 23.3 % 16.0-52.0 Monocyte 6.5 % 2.0-10.0 Eosinophil 1.5 % 0.0-5.0 Basophil 0.8 % 0.0-4.0 Abs Neutrophils 4.7 K/uL 2.1-8.0 Abs Lymphocytes 1.6 K/uL 0.8-5.5 Abmon 0.5 K/uL 0.1-1.0 Abs Eosinophils 0.1 K/uL 0.0-0.5 Abs Basophils 0.1 K/uL 0.0-0.3 Comprehensive Metabolic (CMP) 03/22/2015 [facility] Sodium 138 mmol/L 134- 142 Potassium 4.3 mmol/L 3.5-5.2 Chloride 104 mmol/L 97-109 Carbon Dioxide 26 mmol/L 24-34 Glucose 76 mg/dL 70-105 BUN 19 mg/dL 6-26 Creatinine 0.8 mg/dL 0.5-1.4 Calcium 9.4 mg/dL 8.5-10.2 Total Protein 6.6 g/dL 6.0-8.0 Albumin 4.0 g/dL 3.6-4.9 Globulin 2.6 g/dL 2.0-3.5 A/G Ratio 1.5 Ratio 1.0-2.2 Total Bilirubin 0.8 mg/dL 0.1-1.3 Alkaline Phosphatase 48 U/L 24-140 Alt 10 U/L 3-42 Ast 18 U/L 8-42 Anion Gap 12 mmol/L 6-14 Safia Egfr >60 >60 80 Non Safia Egfr >60 >60 81 Lipid 03/22/2015 [facility] Cholesterol 241 mg/dL High 50-199 Triglycerides 138 mg/dL 30-200 HDL 58 mg/dL 35-85 82 Chol/ HDL Ratio 4.2 ratio 3.7-5.6 VLDL 28 mg/dL 2-29 LDL (Calc) 155 mg/dL High 20-99 83 Laboratory test finding 03/22/2015 [facility] TSH 0.51 uIU/mL 0.35-4.94 Vit D,25 Hydroxy 69 ng/mL 31-100 Vitamin B12 523 pg/mL 180-914 CBC With Auto Diff 11/08/2014 [facility] WBC 5.4 K/uL 4.1-11.0 84 RBC 4.15 M/uL 4.00-5.40 Hemoglobin 13.1 gm/dL 12.0-16.0 Hematocrit 39.8 % 36.0-47.0 MCV 96.1 fL 80.0-97.0 MCH 31.6 pg 27.0-32.0 MCHC 32.9 g/dL 32.0-36.0 RDW 13.2 % 11.5-14.5 PLT Count 217 K/ul 140-400 Neutrophil 52.5 % 35.0-75.0 Lymphocyte 34.3 % 16.0-52.0 Monocyte 8.4 % 2.0-10.0 Eosinophil 3.1 % 0.0-5.0 Basophil 1.7 % 0.0-4.0 Abs Neutrophils 2.8 K/uL 2.1-8.0 Abs Lymphocytes 1.9 K/uL 0.8-5.5 Abmon 0.5 K/uL 0.1-1.0 Abs Eosinophils 0.2 K/uL 0.0-0.5 Abs Basophils 0.1 K/uL 0.0-0.3 Comprehensive Metabolic (CMP) 11/08/2014 [facility] Sodium 139 mmol/L 134- 142 Potassium 4.2 mmol/L 3.5-5.2 Chloride 105 mmol/L 97-109 Carbon Dioxide 28 mmol/L 24-34 Glucose 76 mg/dL 70-105 BUN 18 mg/dL 6-26 Creatinine 0.9 mg/dL 0.5-1.4 Calcium 9.2 mg/dL 8.5-10.2 Total Protein 6.4 g/dL 6.0-8.0 Albumin 4.0 g/dL 3.6-4.9 Globulin 2.4 g/dL 2.0-3.5 A/G Ratio 1.7 Ratio 1.0-2.2 Total Bilirubin 0.7 mg/dL 0.1-1.3 Alkaline Phosphatase 39 U/L 24-140 Alt 10 U/L 3-42 Ast 19 U/L 8-42 Anion Gap 10 mmol/L 6-14 Safia Egfr >60 >60 85 Non Safia Egfr >60 >60 86 Lipid 11/08/2014 [facility] Cholesterol 221 mg/dL High 50-199 Triglycerides 97 mg/dL 30-200 HDL 64 mg/dL 35-85 87 Chol/ HDL Ratio 3.5 ratio Low 3.7-5.6 VLDL 19 mg/dL 2-29 LDL (Calc) 138 mg/dL High 20-99 88 Laboratory test finding 11/08/2014 [facility] TSH 1.99 uIU/mL 0.35-4.94 Vitamin B12 672 pg/mL 180-914 Vit D,25 Hydroxy 54 ng/mL 31-100 Laboratory test 06/06/2004 [facility] (Do not Use) TSH 0.93 uIU/ml 0.50 -6.00 finding [facility] [place] [address] [phone] Lipid Panel 02/03/2004 [facility] (Do not Use) Cholesterol 194 mg/dL 50 -199 [facility] [place] [address] [phone] Triglycerides 190 mg/dL 30-200 HDL 59 mg/dL 35-85 Chol/HDL Ratio 3.3 Ratio VLDL 38 mg/dL LDL (Calc) 97 mg/dL 20-129 Lipid Panel 12/21/2003 [facility] (Do not Use) Cholesterol 176 mg/dL 50 -199 [facility] [place] [address] [phone] Triglycerides 233 mg/dL High 30-200 HDL 48 mg/dL 35-85 Chol/HDL Ratio 3.7 Ratio VLDL 47 mg/dL LDL (Calc) 81 mg/dL 20-129 Laboratory test 11/21/2003 [facility] (Do not Use) Lanoxin 0.9 ng/ml 0.9-2.0 finding [facility] (Digoxin) [place] [address] [phone] CBC 11/21/2003 [facility] (Do not Use) WBC 6.6 K/ul 4.1-10.9 [facility] [place] [address] [phone] RBC 4.13 M/ul Low 4.20-6.30 Hemoglobin 13.0 GM/dl 12.5-15.0 Hematocrit 38.5 % 37.0-51.0 MCV 93.1 FL 80.0-97.0 MCH 31.4 pg 26.0-32.0 MCHC 33.8 g/dL 31.0-36.0 RDW 12.4 % 11.5-14.5 Platelet Count 290 K/ul 140-440 Neutrophils 47.0 % Low 50-70 Lymphocytes 41.7 % 20-44 Monocytes 6.6 % 2-9 Eosinophil 3.7 % 0-4 Basophil 1.0 % 0-2 Absolute Neutrophils 3.1 K/ul 2.05-7.63 Absolute Lymphocytes 2.8 K/ul 0.8-4.8 Absolute Monocytes 0.4 K/ul 0.1-1.0 Absolute Eosinophils 0.2 K/ul 0.1-0.5 Absolute Basophils 0.1 K/ul 0.1-0.3 CMP 11/21/2003 [facility] (Do not Use) Sodium 140 mmol/L 135-145 [facility] [place] [address] [phone] Potassium 4.2 mmol/L 3.4-5.3 Chloride 107 mmol/L 98-111 Carbon Dioxide 23 mmol/L 22-33 Glucose 94 mg/dL 70-105 BUN 14 mg/dL 6-26 Creatinine 0.8 mg/dL 0.5-1.5 BUN/CR 18 Ratio 12.0-20.0 Calcium 9.1 mg/dL 8.6-10.3 Total Protein 6.3 g/dL 6.2-8.3 Albumin 3.6 g/dL 3.5-5.0 Globulin 2.7 g/dL 2.7-4.3 A/G Ratio 1.3 Ratio 1.0-2.2 Total Bilirubin 0.5 mg/dL 0.1-1.3 Ast 23 U/L 8-42 Alt 14 U/L 3-42 Alkaline Phosphatase 48 U/L 24-140 Anion Gap 14 mmol/L 10-20 Laboratory test 11/21/2003 [facility] (Do not Use) TSH 1.60 uIU/ml 0.50 -6.00 finding [facility] [place] [address] [phone] Lipid Panel 11/21/2003 [facility] (Do not Use) Cholesterol 212 mg/dL High 50-199 [facility] [place] [address] [phone] Triglycerides 314 mg/dL High 30-200 HDL 51 mg/dL 35-85 Chol/HDL Ratio 4.2 Ratio VLDL 63 mg/dL LDL (Calc) Triglyceride tess <SEE NOTE> mg/dL 20-129 89 Laboratory test 11/21/2003 [facility] (Do not Use) Iron, Total 64 g/dL 50-170 finding [facility] [place] [address] [phone] Direct LDL 117 mg/dL 20-129 Laboratory test 11/01/2003 [facility] (Do not Use) TSH 0.94 uIU/ml 0.50 -6.00 finding [facility] [place] [address] [phone] Laboratory test 09/16/2003 [facility] (Do not Use) TSH 0.04 uIU/ml Low 0.50-6.00 [place] [address] [phone] Hepatic Liver 09/16/2003 [facility] (Do not Use) Total 6.9 g/dL 6.2- 8.3 Panel [facility] [place] [address] [phone] Albumin 3.7 g/dL 3.5-5.0 Total Bilirubin 0.6 mg/dL 0.1-1.3 Direct Bilirubin 0.0 mg/dL 0.0-0.4 Ast 23 U/L 8-42 Alt 18 U/L 3-42 Alkaline Phosphatase 51 U/L 24-140 Basic (BMP) 03/10/2003 [facility] (Do not Use) Sodium 139 mmol/L 135- 145 [place] [address] [phone] Potassium 4.1 mmol/L 3.4-5.3 Chloride 107 mmol/L 98-111 Carbon Dioxide 26 mmol/L 22-33 Glucose 82 mg/dL 70-105 BUN 9 mg/dL 6-26 Creatinine 0.8 mg/dL 0.5-1.5 BUN/CR 11 Ratio Low 12.0-20.0 Anion Gap 10 mmol/L 10-20 Calcium 8.9 mg/dL 8.6-10.3 CBC 02/02/2003 [facility] (Do not Use) WBC 6.4 K/ul 4.1-10.9 [address] [place] [address] [phone] RBC 3.83 M/ul Low 4.2-6.3 Hemoglobin 12.4 GM/dl 12.0-16.0 Hematocrit 35.0 % Low 37.0-51.0 MCV 91.4 FL 80-97 MCH 32.3 pg High 26.0-32.0 MCHC 35.3 g/dL 31.0-36.0 RDW 11.1 % Low 11.5-14.5 Platelet Count 305 K/ul 140-440 Neutrophils 47.2 % Low 50-70 Lymphocytes 42.1 % 20-44 Monocytes 7.6 % 2-9 Eosinophil 2.3 % 0-4 Basophil 0.8 % 0-2 Absolute Neutrophils 3.0 K/ul 2.05-7.63 Absolute Lymphocytes 2.7 K/ul 0.8-4.8 Absolute Monocytes 0.5 K/ul 0.1-1.0 Absolute Eosinophils 0.1 K/ul 0.1-0.5 Absolute Basophils 0.1 K/ul 0.1-0.3 Hepatic Liver 02/02/2003 [facility] (Do not Use) Total Protein 6.5 g/dL 6.2-8.3 Panel [facility] [place] [address] [phone] Albumin 3.3 g/dL Low 3.5-5.0 Total Bilirubin 0.5 mg/dL 0.1-1.3 Direct Bilirubin 0.0 mg/dL 0.0-0.4 Ast 19 U/L 8-42 Alt 15 U/L 3-42 Alkaline Phosphatase 42 U/L 24-140 Laboratory test 11/10/2002 [facility] (Do not Use) Lanoxin 1.0 ng/ml 0.9-2.0 finding [facility] (Digoxin) [place] [address] [phone] Laboratory test 11/10/2002 [facility] (Do not Use) TSH 2.29 0.50-6.00 finding [facility] uIU/[place] [address] [phone] Lipid Panel 11/10/2002 [facility] (Do not Use) Cholesterol 257 mg/dL High 50-199 [facility] [place] [address] [phone] Triglycerides 219 mg/dL High 30-200 HDL 63 mg/dL 35-85 Chol/HDL Ratio 4.1 Ratio VLDL 44 mg/dL LDL (Calc) 150 mg/dL High 20-129 Hepatic Liver 09/02/2002 [facility] (Do not Use) Total Protein 7.0 g/dL 6.2-8.3 Panel [facility] [place] [address] [phone] Albumin 3.8 g/dL 3.5-5.0 Total Bilirubin 0.6 mg/dL 0.1-1.3 Direct Bilirubin 0.0 mg/dL 0.0-0.4 Ast 24 U/L 8-42 Alt 17 U/L 3-42 Alkaline Phosphatase 54 U/L 24-140 CBC 09/02/2002 [facility] (Do not Use) WBC 7.5 K/ul 4.1-10.9 [facility] [place] [address] [phone] RBC 4.10 M/ul Low 4.2-6.3 Hemoglobin 13.4 GM/dl 12.0-16.0 Hematocrit 38.1 % 37.0-51.0 MCV 92.9 FL 80-97 MCH 32.7 pg High 26.0-32.0 MCHC 35.3 g/dL 31.0-36.0 RDW 11.8 % 11.5-14.5 Platelet Count 323 K/ul 140-440 Neutrophils 65.5 % 50-70 Lymphocytes 26.1 % 20-44 Monocytes 6.4 % 2-9 Eosinophil 1.2 % 0-4 Basophil 0.8 % 0-2 Absolute Neutrophils 4.8 K/ul 2.05-7.63 Absolute Lymphocytes 2.0 K/ul 0.8-4.8 Absolute Monocytes 0.5 K/ul 0.1-1.0 Absolute Eosinophils 0.1 K/ul 0.1-0.5 Absolute Basophils 0.1 K/ul 0.1-0.3 Basic (BMP) 09/02/2002 [facility] (Do not Use) Sodium 135 mmol/L 135- 145 [facility] [place] [address] [phone] Potassium 4.3 mmol/L 3.4-5.3 Chloride 102 mmol/L 98-111 Carbon Dioxide 27 mmol/L 22-33 Glucose 111 mg/dL High 70-105 BUN 12 mg/dL 6-26 Creatinine 0.7 mg/dL 0.5-1.5 BUN/CR 17 Ratio 12.0-20.0 Anion Gap 10 mmol/L 10-20 Calcium 9.6 mg/dL 8.6-10.3 Laboratory test 05/07/2002 [facility] (Do not Use) TSH 0.97 uIU/ml 0.50 -6.00 finding [facility] [place] [address] [phone] CBC 09/16/2001 [facility] (Do not Use) WBC 5.9 K/ul 4.1-10.9 [facility] [place] [address] [phone] RBC 3.91 M/ul Low 4.2-6.3 Hemoglobin 12.8 GM/dl 12.0-16.0 Hematocrit 36.2 % Low 37.0-51.0 MCV 92.6 FL 80-97 MCH 32.6 pg High 26.0-32.0 MCHC 35.2 g/dL 31.0-36.0 RDW 11.5 % 11.5-14.5 Platelet Count 288 K/ul 140-440 Neutrophils 42.9 % Low 50-70 Lymphocytes 46.4 % High 20-44 Monocytes 7.8 % 2-9 Eosinophil 2.1 % 0-4 Basophil 0.8 % 0-2 Absolute Neutrophils 2.5 K/ul 2.05-7.63 Absolute Lymphocytes 2.8 K/ul 0.8-4.8 Absolute Monocytes 0.5 K/ul 0.1-1.0 Absolute Eosinophils 0.1 K/ul 0.1-0.5 Absolute Basophils 0.0 K/ul Low 0.1-0.3 CMP 09/16/2001 [facility] (Do not Use) Sodium 139 mmol/L 137-145 [facility] [place] [address] [phone] Potassium 4.0 mmol/L 3.6-5.0 Chloride 101 mmol/L 98-107 Carbon Dioxide 29 mmol/L 22-30 Glucose 80 mg/dL 65-105 BUN 9 mg/dL 7-18 Creatinine, Serum 0.8 mg/dL 0.7-1.2 BUN/CR Ratio 11.7 Ratio Low 12-20 Calcium 9.4 mg/dL 8.7-10.5 Total Protein 6.4 g/dL 6.3-8.2 Albumin 3.1 g/dL Low 3.5-5.0 Globulin 3.3 g/dL 2.7-4.3 A/G Ratio 0.9 Low 1.0-2.2 Total Bilirubin 0.1 mg/dL Low 0.2-1.3 Ast 20 U/L 14-36 Alt 14 U/L 9-52 Alkaline Phosphatase 42 U/L 38-126 Laboratory test 09/16/2001 [facility] (Do not Use) TSH 0.66 uIU/ml 0.47 -6.90 [place] [address] [phone] Laboratory test 08/24/2001 [facility] (Do not Use) Digoxin 1.04 ng/dL 0.8-2.0 [place] [address] [phone] Hepatic Liver 08/24/2001 [facility] (Do not Use) Total Protein 7.0 g/dL 6.3-8.2 [place] [address] [phone] Albumin 3.7 g/dL 3.5-5.0 Total Bilirubin 0.1 mg/dL Low 0.2-1.3 Direct Bilirubin 0.0 mg/dL 0.0-0.4 Ast 22 U/L 14-36 Alt 21 U/L 9-52 Alkaline Phosphatase 52 U/L 38-126 Laboratory test 08/24/2001 [facility] (Do not Use) TSH 1.87 uIU/ml 0.47 -6.90 [place] [address] [phone] CBC 08/24/2001 [facility] (Do not Use) WBC 6.4 K/ul 4.1-10.9 [place] [address] [phone] RBC 4.20 M/ul 4.2-6.3 Hemoglobin 13.7 GM/dl 12.0-16.0 Hematocrit 39.0 % 37.0-51.0 MCV 92.9 FL 80-97 MCH 32.6 pg High 26.0-32.0 MCHC 35.1 g/dL 31.0-36.0 RDW 11.5 % 11.5-14.5 Platelet Count 301 K/ul 140-440 Neutrophils 52.0 % 50-70 Lymphocytes 38.4 % 20-44 Monocytes 6.6 % 2-9 Eosinophil 2.2 % 0-4 Basophil 0.8 % 0-2 Absolute Neutrophils 3.3 K/ul 2.05-7.63 Absolute Lymphocytes 2.5 K/ul 0.8-4.8 Absolute Monocytes 0.4 K/ul 0.1-1.0 Absolute Eosinophils 0.1 K/ul 0.1-0.5 Absolute Basophils 0.1 K/ul 0.1-0.3 1 This sample is drawn by:[email or web address] 2 Updated reference range on new analyzer 3 Updated reference range on new analyzer 4 Updated reference range 10-14-2018 5 Updated Reference Range 6 Concerning GFR Guidelines for Americans: Normal function or mild renal disease, if clinically at risk: >/=60 mL/min Moderately decreased: 30-59 Severely decreased: 15-29 Renal failure: <15 There is reduced accuracy above 60ml/min/1.73 m squared, but the numeric value may be clinically useful in the near 60 range 7 Concerning GFR Guidelines: Normal function or mild renal disease, if clinically at risk: >/=60 mL/min Moderately decreased: 30-59 Severely decreased: 15-29 Renal failure: <15 There is reduced accuracy above 60ml/min/1.73 m squared, but the numeric value may be clinically useful in the near 60 range Glomerular Filtration Rate (GFR) is estimated based on the CKD-EPI equation, which assumes a steady state for creatinine as recommended by the National Kidney Disease Education Program in conjunction with the National Institutes of Health and the National Kidney Foundation. Clinical conditions in which it may be necessary to measure GFR by using clearance methods include extremes of age and body size, severe malnutrition or obesity, diseases of skeletal muscle, paraplegia or quadriplegia, vegetarian diet, rapidly changing kidney function, and calculation of the dose of potentially toxic drugs that are excreted by the kidneys. 8 Per NCEP ATP III Guidelines: Results lower than 40 mg/dL are suggestive of increased risk for coronary artery disease. Results > or=to 60 mg/dL are considered a negative risk factor. 9 Per NCEP ATP III Guidelines: Normal Population <130 Patients with medical conditions: CHD/DM Optimal: <100 Borderline high: 130-159 High: 160-189 Very high: >189 10 Clinical Guidelines for recommended serum 25(OH)Vitamin D Deficient at less than 20 ng/mL Insufficient at 20 to <30 ng/mL Sufficient at 30-100 ng/mL Toxicity at greater than 100 ng/mL 11 Per NCEP ATP III Guidelines: Results lower than 40 mg/dL are suggestive of increased risk for coronary artery disease. Results > or=to 60 mg/dL are considered a negative risk factor. 12 Per NCEP ATP III Guidelines: Normal Population <130 Patients with medical conditions: CHD/DM Optimal: <100 Borderline high: 130-159 High: 160-189 Very high: >189 13 Clinical Guidelines for recommended serum 25(OH)Vitamin D Deficient at less than 20 ng/mL Insufficient at 20 to <30 ng/mL Sufficient at 30-100 ng/mL Toxicity at greater than 100 ng/mL 14 Updated reference range on new analyzer 15 Updated reference range on new analyzer 16 Concerning GFR Guidelines for Americans: Normal function or mild renal disease, if clinically at risk: >/=60 mL/min Moderately decreased: 30-59 Severely decreased: 15-29 Renal failure: <15 17 Concerning GFR Guidelines: Normal function or mild renal disease, if clinically at risk: >/=60 mL/min Moderately decreased: 30-59 Severely decreased: 15-29 Renal failure: <15 Glomerular Filtration Rate (GFR) is estimated based on the MDRD equation, which assumes a steady state for creatinine as recommended by the National Kidney Disease Education Program in conjunction with the National Institutes of Health and the National Kidney Foundation. Clinical conditions in which it may be necessary to measure GFR by using clearance methods include extremes of age and body size, severe malnutrition or obesity, diseases of skeletal muscle, paraplegia or quadriplegia, vegetarian diet, rapidly changing kidney function, and calculation of the dose of potentially toxic drugs that are excreted by the kidneys. 18 Updated Reference Range 19 This sample is drawn by:[email or web address] 20 Updated reference range on new analyzer 21 Updated reference range on new analyzer 22 Concerning GFR Guidelines for Americans: Normal function or mild renal disease, if clinically at risk: >/=60 mL/min Moderately decreased: 30-59 Severely decreased: 15-29 Renal failure: <15 23 Concerning GFR Guidelines: Normal function or mild renal disease, if clinically at risk: >/=60 mL/min Moderately decreased: 30-59 Severely decreased: 15-29 Renal failure: <15 Glomerular Filtration Rate (GFR) is estimated based on the MDRD equation, which assumes a steady state for creatinine as recommended by the National Kidney Disease Education Program in conjunction with the National Institutes of Health and the National Kidney Foundation. Clinical conditions in which it may be necessary to measure GFR by using clearance methods include extremes of age and body size, severe malnutrition or obesity, diseases of skeletal muscle, paraplegia or quadriplegia, vegetarian diet, rapidly changing kidney function, and calculation of the dose of potentially toxic drugs that are excreted by the kidneys. 24 Updated Reference Range 25 This sample is drawn by:[email or web address] 26 Updated reference range on new analyzer 27 Updated reference range on new analyzer 28 Concerning GFR Guidelines for Americans: Normal function or mild renal disease, if clinically at risk: >/=60 mL/min Moderately decreased: 30-59 Severely decreased: 15-29 Renal failure: <15 29 Concerning GFR Guidelines: Normal function or mild renal disease, if clinically at risk: >/=60 mL/min Moderately decreased: 30-59 Severely decreased: 15-29 Renal failure: <15 Glomerular Filtration Rate (GFR) is estimated based on the MDRD equation, which assumes a steady state for creatinine as recommended by the National Kidney Disease Education Program in conjunction with the National Institutes of Health and the National [facility]. Clinical conditions in which it may be necessary to measure GFR by using clearance methods include extremes of age and body size, severe malnutrition or obesity, diseases of skeletal muscle, paraplegia or quadriplegia, vegetarian diet, rapidly changing kidney function, and calculation of the dose of potentially toxic drugs that are excreted by the kidneys. 30 Updated Reference Range 31 Per NCEP ATP III Guidelines: Results lower than 40 mg/dL are suggestive of increased risk for coronary artery disease. Results > or=to 60 mg/dL are considered a negative risk factor. 32 Per NCEP ATP III Guidelines: Normal Population <130 Patients with medical conditions: CHD/DM Optimal: <100 Borderline high: 130-159 High: 160-189 Very high: >189 33 Clinical Guidelines for recommended serum 25(OH)Vitamin D Deficient at less than 20 ng/mL Insufficient at 20 to <30 ng/mL Sufficient at 30-100 ng/mL Toxicity at greater than 100 ng/mL 34 Clinical Guidelines for recommended serum 25(OH)Vitamin D Deficient at less than 20 ng/mL Insufficient at 20 to <30 ng/mL Sufficient at 30-100 ng/mL Toxicity at greater than 100 ng/mL 35 Per NCEP ATP III Guidelines: Results lower than 40 mg/dL are suggestive of increased risk for coronary artery disease. Results > or=to 60 mg/dL are considered a negative risk factor. 36 Per NCEP ATP III Guidelines: Normal Population <130 Patients with medical conditions: CHD/DM Optimal: <100 Borderline high: 130-159 High: 160-189 Very high: >189 37 Updated reference range on new analyzer 38 Updated reference range on new analyzer 39 Concerning GFR Guidelines for Americans: Normal function or mild renal disease, if clinically at risk: >/=60 mL/min Moderately decreased: 30-59 Severely decreased: 15-29 Renal failure: <15 40 Concerning GFR Guidelines: Normal function or mild renal disease, if clinically at risk: >/=60 mL/min Moderately decreased: 30-59 Severely decreased: 15-29 Renal failure: <15 Glomerular Filtration Rate (GFR) is estimated based on the MDRD equation, which assumes a steady state for creatinine as recommended by the National Kidney Disease Education Program in conjunction with the National Institutes of Health and the National Kidney Foundation. Clinical conditions in which it may be necessary to measure GFR by using clearance methods include extremes of age and body size, severe malnutrition or obesity, diseases of skeletal muscle, paraplegia or quadriplegia, vegetarian diet, rapidly changing kidney function, and calculation of the dose of potentially toxic drugs that are excreted by the kidneys. 41 Updated Reference Range 42 Updated reference range on new analyzer 43 Updated reference range on new analyzer 44 Concerning GFR Guidelines for Americans: Normal function or mild renal disease, if clinically at risk: >/=60 mL/min Moderately decreased: 30-59 Severely decreased: 15-29 Renal failure: <15 45 Concerning GFR Guidelines: Normal function or mild renal disease, if clinically at risk: >/=60 mL/min Moderately decreased: 30-59 Severely decreased: 15-29 Renal failure: <15 Glomerular Filtration Rate (GFR) is estimated based on the MDRD equation, which assumes a steady state for creatinine as recommended by the National Kidney Disease Education Program in conjunction with the National Institutes of Health and the National Kidney Foundation. Clinical conditions in which it may be necessary to measure GFR by using clearance methods include extremes of age and body size, severe malnutrition or obesity, diseases of skeletal muscle, paraplegia or quadriplegia, vegetarian diet, rapidly changing kidney function, and calculation of the dose of potentially toxic drugs that are excreted by the kidneys. 46 Updated reference range on new analyzer 47 Per NCEP ATP III Guidelines: Results lower than 40 mg/dL are suggestive of increased risk for coronary artery disease. Results > or=to 60 mg/dL are considered a negative risk factor. 48 Per NCEP ATP III Guidelines: Normal Population <130 Patients with medical conditions: CHD/DM Optimal: <100 Borderline high: 130-159 High: 160-189 Very high: >189 49 Clinical Guidelines for recommended serum 25(OH)Vitamin D Deficient at less than 20 ng/mL Insufficient at 20 to <30 ng/mL Sufficient at 30-100 ng/mL Toxicity at greater than 100 ng/mL 50 Updated reference range on new analyzer 51 Updated reference range on new analyzer 52 Concerning GFR Guidelines for Americans: Normal function or mild renal disease, if clinically at risk: >/=60 mL/min Moderately decreased: 30-59 Severely decreased: 15-29 Renal failure: <15 53 Concerning GFR Guidelines: Normal function or mild renal disease, if clinically at risk: >/=60 mL/min Moderately decreased: 30-59 Severely decreased: 15-29 Renal failure: <15 Glomerular Filtration Rate (GFR) is estimated based on the MDRD equation, which assumes a steady state for creatinine as recommended by the National Kidney Disease Education Program in conjunction with the National Institutes of Health and the National Kidney Foundation. Clinical conditions in which it may be necessary to measure GFR by using clearance methods include extremes of age and body size, severe malnutrition or obesity, diseases of skeletal muscle, paraplegia or quadriplegia, vegetarian diet, rapidly changing kidney function, and calculation of the dose of potentially toxic drugs that are excreted by the kidneys. 54 Updated reference range on new analyzer 55 Per NCEP ATP III Guidelines: Results lower than 40 mg/dL are suggestive of increased risk for coronary artery disease. Results > or=to 60 mg/dL are considered a negative risk factor. 56 Per NCEP ATP III Guidelines: Normal Population <130 Patients with medical conditions: CHD/DM Optimal: <100 Borderline high: 130-159 High: 160-189 Very high: >189 57 This sample is drawn by:RHONA 58 Updated reference range on new analyzer 59 Updated reference range on new analyzer 60 Concerning GFR Guidelines for Americans: Normal function or mild renal disease, if clinically at risk: >/=60 mL/min Moderately decreased: 30-59 Severely decreased: 15-29 Renal failure: <15 61 Concerning GFR Guidelines: Normal function or mild renal disease, if clinically at risk: >/=60 mL/min Moderately decreased: 30-59 Severely decreased: 15-29 Renal failure: <15 Glomerular Filtration Rate (GFR) is estimated based on the MDRD equation, which assumes a steady state for creatinine as recommended by the National Kidney Disease Education Program in conjunction with the National Institutes of Health and the National Kidney Foundation. Clinical conditions in which it may be necessary to measure GFR by using clearance methods include extremes of age and body size, severe malnutrition or obesity, diseases of skeletal muscle, paraplegia or quadriplegia, vegetarian diet, rapidly changing kidney function, and calculation of the dose of potentially toxic drugs that are excreted by the kidneys. 62 Updated reference range on new analyzer 63 Per NCEP ATP III Guidelines: Results lower than 40 mg/dL are suggestive of increased risk for coronary artery disease. Results > or=to 60 mg/dL are considered a negative risk factor. 64 Per NCEP ATP III Guidelines: Normal Population <130 Patients with medical conditions: CHD/DM Optimal: <100 Borderline high: 130-159 High: 160-189 Very high: >189 65 This sample is drawn by:JOE 66 Concerning GFR Guidelines for Americans: Normal function or mild renal disease, if clinically at risk: >/=60 mL/min Moderately decreased: 30-59 Severely decreased: 15-29 Renal failure: <15 67 Concerning GFR Guidelines: Normal function or mild renal disease, if clinically at risk: >/=60 mL/min Moderately decreased: 30-59 Severely decreased: 15-29 Renal failure: <15 Glomerular Filtration Rate (GFR) is estimated based on the MDRD equation, which assumes a steady state for creatinine as recommended by the National Kidney Disease Education Program in conjunction with the National Institutes of Health and the National Kidney Foundation. Clinical conditions in which it may be necessary to measure GFR by using clearance methods include extremes of age and body size, severe malnutrition or obesity, diseases of skeletal muscle, paraplegia or quadriplegia, vegetarian diet, rapidly changing kidney function, and calculation of the dose of potentially toxic drugs that are excreted by the kidneys. 68 Fastin hours 69 NOTE: IF REFLEX CULTURE FOR KLEBSIELLA OXYTOCA IS CLINICALLY INDICATED, PLEASE CONTACT THE MICROBIOLOGY LABORATORY ([phone]) WITHIN 3 DAYS OF THIS REPORT. Unless otherwise specified, testing performed by [facility] [address] [place] [id number] 70 SPECIMEN DESCRIPTION STOOL SPECIAL REQUESTS NONE RESULT NEGATIVE FOR GIARDIA BY DFA NEGATIVE FOR CRYPTOSPORIDIUM BY DFA STOOL SPECIMEN SCREENED FOR THE PRESENCE OF GIARDIA LAMBLIA AND CRYPTOSPORIDIUM PARVUM ONLY. FOR PATIENTS FROM OR WITH A HISTORY OF TRAVEL TO A DEVELOPING COUNTRY, OR WHO HAVE PERSISTANT SYMPTOMS AND/OR ARE IMMUNOCOMPROMISED, CALL MICROBIOLOGY TO REQUEST THE REFLEX TEST OAP FOR A COMPREHENSIVE MICROSCOPIC EXAMINATION. SPECIMENS ARE SAVED IN FIXATIVE AND HELD FOR 7 DAYS FROM THE REPORT DATE TO ALLOW THESE TESTS TO BE ADDED ON. REPORT STATUS FINAL 11/30/2015 Unless otherwise specified, testing [place] [address] 71 SPECIMEN DESCRIPTION STOOL SPECIAL REQUESTS NONE RESULT NEGATIVE FOR ENTERIC PATHOGENS BY PCR. NOTE: THIS MOLECULAR ASSAY DETECTS THE FOLLOWING ENTERIC PATHOGENS: CAMPYLOBACTER GROUP (COLI, JEJUNI, INCOENCIO), SALMONELLA SPECIES, SHIGELLA SPECIES (DYSENTERIAE, BOYDII, SONNEI, FLEXNERI), VIBRIO GROUP (CHOLERAE, PARAHAEMOLYTICUS), YERSINIA ENTEROCOLITICA, SHIGA TOXIN 1, SHIGA TOXIN 2, NOROVIRUS GROUP 1 AND 2, ROTAVIRUS A. REPORT STATUS FINAL 11/30/2015 Unless otherwise specified, testing performed by [facility] [place] [address] 72 This sample is drawn by:RHONA 73 Concerning GFR Guidelines for Americans: Normal function or mild renal disease, if clinically at risk: >/=60 mL/min Moderately decreased: 30-59 Severely decreased: 15-29 Renal failure: <15 74 Concerning GFR Guidelines: Normal function or mild renal disease, if clinically at risk: >/=60 mL/min Moderately decreased: 30-59 Severely decreased: 15-29 Renal failure: <15 Glomerular Filtration Rate (GFR) is estimated based on the MDRD equation, which assumes a steady state for creatinine as recommended by the National Kidney Disease Education Program in conjunction with the National Institutes of Health and the National Kidney Foundation. Clinical conditions in which it may be necessary to measure GFR by using clearance methods include extremes of age and body size, severe malnutrition or obesity, diseases of skeletal muscle, paraplegia or quadriplegia, vegetarian diet, rapidly changing kidney function, and calculation of the dose of potentially toxic drugs that are excreted by the kidneys. 75 Concerning GFR Guidelines for Americans: Normal function or mild renal disease, if clinically at risk: >/=60 mL/min Moderately decreased: 30-59 Severely decreased: 15-29 Renal failure: <15 76 Concerning GFR Guidelines: Normal function or mild renal disease, if clinically at risk: >/=60 mL/min Moderately decreased: 30-59 Severely decreased: 15-29 Renal failure: <15 Glomerular Filtration Rate (GFR) is estimated based on the MDRD equation, which assumes a steady state for creatinine as recommended by the National Kidney Disease Education Program in conjunction with the National Institutes of Health and the National Kidney Foundation. Clinical conditions in which it may be necessary to measure GFR by using clearance methods include extremes of age and body size, severe malnutrition or obesity, diseases of skeletal muscle, paraplegia or quadriplegia, vegetarian diet, rapidly changing kidney function, and calculation of the dose of potentially toxic drugs that are excreted by the kidneys. 77 Per NCEP ATP III Guidelines: Results lower than 40 mg/dL are suggestive of increased risk for coronary artery disease. Results > or=to 60 mg/dL are considered a negative risk factor. 78 Per NCEP ATP III Guidelines: Normal Population <130 Patients with medical conditions: CHD/DM Optimal: <100 Borderline high: 130-159 High: 160-189 Very high: >189 79 This sample is drawn by: tg Fastin hours This sample is drawn by: tg Fastin hours This sample is drawn by: tg Fastin hours This sample is drawn by: tg Fastin hours This sample is drawn by: tg Fastin hours This sample is drawn by: tg Fastin hours 80 Concerning GFR Guidelines for Americans: Normal function or mild renal disease, if clinically at risk: >/=60 mL/min Moderately decreased: 30-59 Severely decreased: 15-29 Renal failure: <15 81 Concerning GFR Guidelines: Normal function or mild renal disease, if clinically at risk: >/=60 mL/min Moderately decreased: 30-59 Severely decreased: 15-29 Renal failure: <15 Glomerular Filtration Rate (GFR) is estimated based on the MDRD equation, which assumes a steady state for creatinine as recommended by the National Kidney Disease Education Program in conjunction with the National Institutes of Health and the National Kidney Foundation. Clinical conditions in which it may be necessary to measure GFR by using clearance methods include extremes of age and body size, severe malnutrition or obesity, diseases of skeletal muscle, paraplegia or quadriplegia, vegetarian diet, rapidly changing kidney function, and calculation of the dose of potentially toxic drugs that are excreted by the kidneys. 82 Per NCEP ATP III Guidelines: Results lower than 40 mg/dL are suggestive of increased risk for coronary artery disease. Results > or=to 60 mg/dL are considered a negative risk factor. 83 Per NCEP ATP III Guidelines: Normal Population <130 Patients with medical conditions: CHD/DM Optimal: <100 Borderline high: 130-159 High: 160-189 Very high: >189 84 This sample is drawn by:DG Fastin hours This sample is drawn by:DG Fastin hours This sample is drawn by:DG Fastin hours This sample is drawn by :DG Fastin hours Fastin hours Fastin hours This sample is drawn by :DG Fastin hours 85 Concerning GFR Guidelines for Americans: Normal function or mild renal disease, if clinically at risk: >/=60 mL/min Moderately decreased: 30-59 Severely decreased: 15-29 Renal failure: <15 86 Concerning GFR Guidelines: Normal function or mild renal disease, if clinically at risk: >/=60 mL/min Moderately decreased: 30-59 Severely decreased: 15-29 Renal failure: <15 Glomerular Filtration Rate (GFR) is estimated based on the MDRD equation, which assumes a steady state for creatinine as recommended by the National Kidney Disease Education Program in conjunction with the National Institutes of Health and the National Kidney Foundation. Clinical conditions in which it may be necessary to measure GFR by using clearance methods include extremes of age and body size, severe malnutrition or obesity, diseases of skeletal muscle, paraplegia or quadriplegia, vegetarian diet, rapidly changing kidney function, and calculation of the dose of potentially toxic drugs that are excreted by the kidneys. 87 Per NCEP ATP III Guidelines: Results lower than 40 mg/dL are suggestive of increased risk for coronary artery disease. Results > or=to 60 mg/dL are considered a negative risk factor. 88 Per NCEP ATP III Guidelines: Normal Population <130 Patients with medical conditions: CHD/DM Optimal: <100 Borderline high: 130-159 High: 160-189 Very high: >189 89 Triglyceride value >250 mg/dl, see Direct LDL result [address] DARNELL ROBERTSON FAX # [phone] Procedures Date Code Description Status 07/13/2018 09289 Admin Of Inj (Therapeutic Phrophylactic Or Diagnostic Completed Subq Inj 01/07/2018 12950 Admin Of Inj (Therapeutic Phrophylactic Or Diagnostic Completed Subq Inj 09/22/2017 [id number] Mammogram Completed 09/22/2017 [id number] Bone Mineral Density Test Completed 01/10/2017 04343 ECHO Transthoracis 2D W Spectral Doppler Completed 12/02/2016 03378 Electrocardiogram Complete Completed 10/31/2015 [id number] Bone Mineral Density Test Completed 09/20/2015 79094 Spirometry /PFT W/O Bronchodialator Completed 09/20/2015 76370 Electrocardiogram Complete Completed 06/16/2013 [id number] Mammogram Completed 01/02/2006 [id number] Bone Mineral Density Test Completed 11/21/2003 84481 Electrocardiogram Complete Completed 12/24/2002 49867 Electrocardiogram Complete Completed 11/10/2002 85260 Pure Tone Audiometry, Air Completed 11/10/2002 78381 Electrocardiogram Complete Completed 11/10/2002 92275 Spirometry /PFT W/O Bronchodialator Completed 09/29/2001 40571 Measure Blood Oxygen Level Single Determination Completed 09/29/2001 96810 Spirometry /PFT W/O Bronchodialator Completed 09/29/2001 44650 ECG Monitor/Report W/O Superimposition Scanning Completed 09/16/2001 16629 Measure Blood Oxygen Level Single Determination Completed 09/16/2001 84568 Electrocardiogram Complete Completed 08/24/2001 52902 Charge Back Completed 11/26/2000 61832 Measure Blood Oxygen Level Single Determination Completed 11/26/2000 63377 ECG Monitor/Report W/O Superimposition Scanning Completed 07/16/2000 21968 Sigmoidoscopy Diagnostic Completed 07/02/2000 95581 Electrocardiogram Complete Completed Encounters Type Date Location Provider Dx Diagnosis Office Visit 10/26/2018 [place] Ramirez Mclean E78.5 Hyperlipidemia, 1:30p Maria Elena Ritchie MD unspecified K21.9 Gastro-esophageal reflux disease without esophagitis M15.0 Primary generalized (osteo)arthritis M81.0 Age-related osteoporosis w/o current pathological fracture M54.9 Dorsalgia, unspecified R42 Dizziness and giddiness F33.0 Major depressive disorder, recurrent, mild E03.9 Hypothyroidism, unspecified E55.9 Vitamin D deficiency, unspecified Office Visit 08/05/2018 11:00a [place] Ramirez Mclean R42 Dizziness and Maria Elena Ritchie MD giddiness G43.101 Migraine with aura, not intractable, with status migrainosus M79.644 Pain in RIGHT finger(s) Office Visit 07/15/2018 [facility], E78.5 Hyperlipidemia, 9:30a [facility] Ritchie MD unspecified K21.9 Gastro-esophageal reflux disease without esophagitis M15.0 Primary generalized (osteo)arthritis M81.0 Age-related osteoporosis w/o current pathological fracture M54.9 Dorsalgia, unspecified R42 Dizziness and giddiness F33.0 Major depressive disorder, recurrent, mild E03.9 Hypothyroidism, unspecified E55.9 Vitamin D deficiency, unspecified Z00.00 Encntr for general adult medical exam w/o abnormal findings E66.3 Overweight Z68.26 Body mass index (BMI) 26.0-26.9, adult Office Visit 06/01/[address] [facility], Z01.818 Encounter for 10:00a JJ Gunderson other preprocedural examination H50.00 Unspecified esotropia E78.5 Hyperlipidemia, unspecified K21.9 Gastro-esophageal reflux disease without esophagitis M15.0 Primary generalized (osteo)arthritis F33.0 Major depressive disorder, recurrent, mild E03.9 Hypothyroidism, unspecified Z68.26 Body mass index (BMI) 26.0-26.9, adult Office Visit 02/19/2018 [facility], E78.5 Hyperlipidemia, 1:45p Maria Elena Ritchie MD unspecified K21.9 Gastro-esophageal reflux disease without esophagitis M15.0 Primary generalized (osteo)arthritis M81.0 Age-related osteoporosis w/o current pathological fracture M54.9 Dorsalgia, unspecified R42 Dizziness and giddiness F33.0 Major depressive disorder, recurrent, mild E03.9 Hypothyroidism, unspecified E55.9 Vitamin D deficiency, unspecified Z23 Encounter for immunization Office Visit 01/26/[address] [facility], Z01.818 Encounter for 8:20a JJ Gunderson other preprocedural examination H25.11 Age-related nuclear cataract, RIGHT eye H25.13 Age-related nuclear cataract, bilateral E03.9 Hypothyroidism, unspecified F33.9 Major depressive disorder, recurrent, unspecified K21.9 Gastro-esophageal reflux disease without esophagitis Z68.25 Body mass index (BMI) 25.0-25.9, adult Office Visit 10/15/2017 [facility], E78.5 Hyperlipidemia, 10:00a Maria Elena Ritchie MD unspecified E03.9 Hypothyroidism, unspecified K21.9 Gastro-esophageal reflux disease without esophagitis F33.9 Major depressive disorder, recurrent, unspecified R42 Dizziness and giddiness M54.9 Dorsalgia, unspecified M81.0 Age-related osteoporosis w/o current pathological fracture Z68.25 Body mass index (BMI) 25.0-25.9, adult Office Visit 07/18/2017 [facility], E78.5 Hyperlipidemia, 11:00a Maria Elena Ritchie MD unspecified E03.9 Hypothyroidism, unspecified K21.9 Gastro-esophageal reflux disease without esophagitis F33.9 Major depressive disorder, recurrent, unspecified R42 Dizziness and giddiness M54.9 Dorsalgia, unspecified E55.9 Vitamin D deficiency, unspecified M81.0 Age-related osteoporosis w/o current pathological fracture Office Visit 04/17/2017 [facility], E78.5 Hyperlipidemia, 11:30a Maria Elena Ritchie MD unspecified E03.9 Hypothyroidism, unspecified K21.9 Gastro-esophageal reflux disease without esophagitis Z00.01 Encounter for general adult medical exam w abnormal findings Z23 Encounter for immunization E55.9 Vitamin D deficiency, unspecified F33.9 Major depressive disorder, recurrent, unspecified R42 Dizziness and giddiness M54.9 Dorsalgia, unspecified Office Visit 01/15/2017 10:30a [facility] Ramirez Patiño R42 Dizziness and Maria Elena Ritchie MD giddiness R26.81 Unsteadiness on feet F33.9 Major depressive disorder, recurrent, unspecified K21.9 Gastro-esophageal reflux disease without esophagitis E78.5 Hyperlipidemia, unspecified E03.9 Hypothyroidism, unspecified R51 Headache Office Visit 12/02/2016 9:30a [place] Ramirez Mclean, R11.0 Nausea Associates R53.83 Other fatigue R42 Dizziness and giddiness R26.81 Unsteadiness on feet I65.22 Occlusion and stenosis of LEFT carotid artery R51 Headache E55.9 Vitamin D deficiency, unspecified Office Visit 07/03/2016 2:00p [facility] Una Olvera, F33.9 Major depressive [facility] STAFF APPRAISER disorder, recurrent, unspecified F41.1 Generalized anxiety disorder K21.9 Gastro-esophageal reflux disease without esophagitis E03.9 Hypothyroidism, unspecified Z13.6 Encounter for screening for cardiovascular disorders Z23 Encounter for immunization Office Visit 12/06/2015 11:40a [facility] Una Olvera, R19.7 Diarrhea, [facility] STAFF APPRAISER unspecified K21.9 Gastro-esophageal reflux disease without esophagitis Office Visit 11/28/2015 [facility] Una Olvera, K21.9 Gastro- esophageal 10:00a [facility] STAFF APPRAISER reflux disease without esophagitis R19.7 Diarrhea, unspecified F33.9 Major depressive disorder, recurrent, unspecified F41.1 Generalized anxiety disorder Z13.6 Encounter for screening for cardiovascular disorders Office Visit 11/14/2015 11:00a [facility] maritaRafaelae, F41.1 Generalized [facility] STAFF APPRAISER anxiety disorder F33.9 Major depressive disorder, recurrent, unspecified K21.9 Gastro-esophageal reflux disease without esophagitis N32.9 Bladder disorder, unspecified R19.7 Diarrhea, unspecified Office Visit 09/20/2015 9:45a [facility] Ramirez Patiño Z00.00 Encntr for Maria Elena Ritchie MD general adult medical exam w/o abnormal findings Z23 Encounter for immunization K21.9 Gastro-esophageal reflux disease without esophagitis F41.1 Generalized anxiety disorder N32.9 Bladder disorder, unspecified E55.9 Vitamin D deficiency, unspecified D51.9 Vitamin B12 deficiency anemia, unspecified F33.9 Major depressive disorder, recurrent, unspecified M54.9 Dorsalgia, unspecified Office Visit 03/22/2015 [facility] maritaUna, E03.9 Hypothyroidism, 10:00a [facility] STAFF APPRAISER unspecified K21.9 Gastro-esophageal reflux disease without esophagitis F32.9 Major depressive disorder, single episode, unspecified F41.1 Generalized anxiety disorder N32.9 Bladder disorder, unspecified E55.9 Vitamin D deficiency, unspecified D51.9 Vitamin B12 deficiency anemia, unspecified Z23 Encounter for immunization Office Visit 12/20/2014 1:00p Una Alexander, 596.9 Bladder [facility] STAFF APPRAISER Disorders Unspec Office Visit 11/08/2014 8:00a Una Alexander, 596.9 Bladder [facility] Disorders Unspec 244.9 Hypothyroidism Other Unspec 530.81 Esophageal Reflux 311 Depressive Disorder Not Elsewhere Spec 300.02 Anxiety Disorder Generalized 780.79 Malaise And Fatigue Other Office Visit 11/05/2004 3:00p Kenn Ortiz MD 244.9 Hypothyroidism Other Unspec 272.0 Hypercholesterolemia Pure 780.4 Dizziness & Giddiness 733.00 Osteoporosis Unspec 788.41 Urinary Frequency V72.84 Examination Preoperative Unspec Office Visit 07/25/2004 6:00p Shantel Linton PA 727.3 Bursitis Other 719.45 Pain Joint Pelvic Region & Thigh Office Visit 06/06/2004 2:15p Shantel Linton 780.4 Dizziness & Giddiness PA 244.9 Hypothyroidism Other Unspec 724.3 Sciatica 782.3 Edema Office Visit 05/15/2004 12:45p Shantel Linton PA 724.3 Sciatica 780.4 Dizziness & Giddiness V04.81 Need For Prophylactic Vaccination & Inoculation/Influenza Office Visit 12/07/2003 3:30p Kenn Ortiz MD 846.0 Sprains & Strains Sacroiliac Region Lumbosacral (Joint)(Liga Office Visit 11/21/2003 9:30a Shantel Linton 780.52 Sleep Disturbance, PA Insomnia Unspecified 244.9 Hypothyroidism Other Unspec 782.3 Edema 564.00 Constipation Unspecified V58.69 Medications Usp (Current) Use Encounter 530.11 Esophagitis Reflux V70.0 Exam (Adult) General Medical Routine AT Health Care Facility 379.91 Pain In Or Around Eye 847.2 Sprains & Strains Lumbar 724.3 Sciatica Office Visit 09/16/2003 11:00a Kenn Ortiz MD 307.41 Sleep Disorder Transient Initiating Or Maintaining Sleep 244.9 Hypothyroidism Other Unspec 846.0 Sprains & Strains Sacroiliac Region Lumbosacral (Joint)(Liga 782.3 Edema Office Visit 03/10/2003 12:30p Karen Vernay, Shantel A, 307.41 Sleep Disorder PA Transient Initiating Or Maintaining Sleep 782.3 Edema 564.00 Constipation Unspecified 530.11 Esophagitis Reflux Office Visit 02/09/2003 10:15a Kenn Ortiz MD 787.99 Digestive Symptoms Other Office Visit 01/14/2003 10:45a Kenn Ortiz MD 530.81 Esophageal Reflux 782.3 Edema Office Visit 12/31/2002 11:00a Kenn Ortiz MD 782.3 Edema Office Visit 12/24/2002 12:15p Kenn Ortiz MD 530.81 Esophageal Reflux 782.3 Edema Office Visit 11/10/2002 8:15a Shantel Linton PA V70.0 Exam ( Adult) General Medical Routine AT Health Care Facility 305.00 Alcohol Abuse Unspec 995.3 Allergy Unspec 296.32 Depressive Disorder Major Recurrent Moderate Office Visit 10/23/2002 12:00p Shantel Linton PA 784.0 Headache 379.91 Pain In Or Around Eye 709.8 Skin Disorders Other Spec Office Visit 12/01/2001 3:15p Rio Hopson MD 786.2 Cough 477.0 Rhinitis Allergic Due To Pollen Office Visit 09/29/2001 9:00a Kenn Ortiz MD 786.09 Dyspnea & Respiratory Abnormalities Other 296.32 Depressive Disorder Major Recurrent Moderate Office Visit 09/16/2001 10:00a Kenn Ortiz MD 244.9 Hypothyroidism Other Unspec 785.1 Palpitations 008.8 Enteritis Due To Other Organism Not Elsewhere Class 780.79 Malaise And Fatigue Other Office Visit 08/24/2001 11:45a Kenn Ortiz MD 244.9 Hypothyroidism Other Unspec 110.1 Dermatophytosis Nail 847.0 Sprains & Strains Neck Office Visit 05/14/2001 2:15p Kenn Ortiz MD Office Visit 02/10/2001 10:00a Kenn Ortiz MD Office Visit 12/04/2000 3:00p Kenn Ortiz MD Office Visit 11/07/2000 11:45a Kenn Ortiz MD Office Visit 10/28/2000 11:30a Kenn Ortiz MD Office Visit 07/02/2000 10:15a Kenn Ortiz MD Office Visit 01/30/2000 11:45a Kenn Ortiz MD 296.32 Depressive Disorder Major Recurrent Moderate Plan of Treatment Future Appointment(s):11/26/2018 2:30 pm - Ramirez Patiño MD at [facility]01/12/2019 10:30 am - Infusion, Schedule at Infusion [id number] - Ramirez Patiño MDE78.5 Hyperlipidemia, unspecifiedComments:Labs reviewed with the patient in detail. She was started on atorvastatin 10 mg. She was encouraged to maintain a low cholesterol diet and a regular exercise regimen. We will continue to monitor.K21.9 Gastro-esophageal reflux disease without esophagitisComments:She was advised to continue with her current medication. Avoid spicy food and control diet as advised.M15.0 Primary generalized (osteo)arthritisComments:Patient was advised to use OTC medication PRN for pain management and will continue to monitor.M81.0 Age-related osteoporosis w/o current pathological fractureComments:Patient advised to continue Calcium+vitamin D and use OTC medication prn for pain.M54.9 Dorsalgia, unspecifiedComments:Continue on current medications. Followed by Orthopedist. Will continue to monitor.R42 Dizziness and giddinessComments:She has been following with Dr. Hill, neurologist on regular basis. Dr. Hill advised her to start physical therapy. We will continue to monitor.F33.0 Major depressive disorder, recurrent, mildComments:Condition reviewed in detail, the patient's mood is stable at present with current medication regimen, will continue the same. We will continue to monitor.E03.9 Hypothyroidism, unspecifiedComments: The patient was advised to continue on current medication regimen. We will need to monitor her TSH periodically.E55.9 Vitamin D deficiency, unspecifiedComments:We will continue to monitor through blood work periodically.AllFollow up:The patient will follow-up with me in a month for reevaluation.
[2018-11-19 14:43] VITALS: BP 156/78
--- NOTE | 2018-11-19 15:33 | UC ---
Hand/Wrist HPI - HPI Summary HPI Summary: 78 y/o female presents ro the urgent care c/o - History Of Current Complaint Chief Complaint: UCUpperExtremity Stated Complaint: S/P FALL RIGHT WRIST/HAND INJURY Time Seen by Provider: 11/19/18 14:54 Hx Obtained From: Patient Pain Intensity: 6 - Allergies/Home Medications Allergies/Adverse Reactions: Allergies Allergy/AdvReac Type Severity Reaction Status Date / Time Penicillins Allergy Rash Verified 11/19/18 14:44 Home Medications: Home Medications Conjugated Estrogens VAG CM* [Premarin VAG CREAM*] 1 applic VAGINAL DAILY [History Confirmed 11/19/18] PMH/Surg Hx/FS Hx/Imm Hx - Surgical History Surgical History: Yes Surgery Procedure, Year, and Place: BACK SX FOR SPINAL CYST. LAMINECTOMY - Family History Known Family History: Positive: None - Social History Alcohol Use: None Substance Use Type: None Smoking Status (MU): Former Smoker When Did the Patient Quit Smoking/Using Tobacco: 30 YRS AGO Physical Exam - Summary Physical Exam Summary: Vital Signs Reviewed: Yes General: Well-Appearing, No Pain Distress, Well-Nourished old female w/o any apparent pain distress Eyes: Positive: Conjunctiva Clear - PERRLA, EOMI ENT: Positive: Normal ENT inspection, Hearing grossly normal, Pharynx normal, TMs normal, Uvula midline Neck: Positive: Supple, Nontender, No Lymphadenopathy Respiratory: Positive: Chest non-tender, Lungs clear, Normal breath sounds, No respiratory distress Cardiovascular: Positive: RRR, No Murmur, Pulses Normal, Brisk Capillary Refill Abdomen Description: Positive: Nontender, No Organomegaly, Soft. Negative: CVA Tenderness (R), CVA Tenderness (L) Bowel Sounds: Positive: Present Musculoskeletal: Positive: Strength Intact, Other: Neurological Exam: Normal Musculoskeletal: Positive: Wrist: the R wrist is without obvious asymmetry or deformity when compared to the L wrist. No surface trauma, open wounds, positive mild soft tissue swelling w/ bruising on the meidal aspect of the RT wrist, no obvious deformity. No overlying erythema or warmth. No bony crepitus. Point tenderness over the thenar eminence and medial aspect of RT wrist. No scaphoid fullness or tenderness to direct palpation or axial load. Decreased ROM due to pain. Motor/sensory function of ulnar, radial, median nerves intact. Ulnar and radial pulses intact. Psychological Exam: Normal Skin Exam: Normal Triage Information Reviewed: Yes Vital Signs: Initial Vital Signs Temp 99.2 F 11/19/18 14:36 Pulse 75 11/19/18 14:36 Resp 18 11/19/18 14:36 BP 156/78 11/19/18 14:36 Pulse Ox 99 11/19/18 14:36 Hand/Wrist Course/Dx - Course Course Of Treatment: RT wrist X-ray ordered. Impression: OSTEOPENIA WITH SLIGHTLY DISPLACED FRACTURE THROUGH THE RADIAL STYLOID as per radiologist. I discussed Pt's symptoms w/ DR Ingram and she recommended a Thumb spica and f/u w/ Orthopedic in 1-2 days. Pt's RT wrist immobilized w/ a thumb spica by the nurse. Advised RICE: Rest, Ice, elevation,advised to continue taken her medications for pain. There was no neurovascular compromise after splint application; the splint was in good alignment and the pt had good sensation and capillary refill at the time of discharge checked by me. Pt given a referral w/ Dr Schwarz in 1-2 days for further management on her RT wrist fracture. Pt's BP is elevated today advised to decrease salt in diet, monitor BP and f/u with PCP for further management. D/C instructions explained. pt understood and agreed w/ plan of care - Differential Dx/Diagnosis Differential Diagnosis/HQI/PQRI: Contusion, Fracture, Infection, Sprain, Strain , Tendonitis Provider Diagnosis: Right wrist fracture, Right wrist injury, Elevated BP without diagnosis of hypertension Discharge - Sign-Out/Discharge Documenting (check all that apply): Patient Departure - D/c home All imaging exams completed and their final reports reviewed: Yes - Discharge Plan Condition: Stable Disposition: HOME Patient Education Materials: Wrist Fracture in Adults (ED) Referrals: Ramirez Patiño MD [Primary Care Provider] - 2 Days Harini Schwarz MD [Medical Doctor] - 1 Day Additional Instructions: 1-Please keep taking your medications for pain as directed to alleviate pain and swelling. 2-Please apply ice, keep your RT wrist immobilized with the splint. Avoid heavy lifting or flexion w/ your RT wrist 3-Please f/u with Orthopedic DR Schwarz in 1-2 days for further evaluation and treatment. 4- Your BP is elevated today. please decrease salt in your diet, monitor BP and if it continues to be elevated please f/u with your PCP for further management. - Billing Disposition and Condition Condition: STABLE Disposition: Home
== END 2018-11-19 16:05 | disposition home or self-care (01) ==
LOC: UCCORT 14:14
DX: S52.511A Displaced fracture of right radial styloid process, initial encounter for closed fracture (principal); W19.XXXA Unspecified fall, initial encounter; Y92.9 Unspecified place or not applicable; M85.831 Other specified disorders of bone density and structure, right forearm; R03.0 Elevated blood-pressure reading, without diagnosis of hypertension; Z87.891 Personal history of nicotine dependence
CPT/HCPCS: 99203; G0463

== ENCOUNTER 2018-12-19 14:30 | Emergency (ER) | payer MEDICARE, BC ==
--- OUTSIDE RECORDS SUMMARY | 2018-12-19 14:42 | XMS REPORT | Continuity of Care Document ---
:1940 External Reference #:[id number] Author Name Amor Wallis Care Team Providers Name Role Phone Ramirez Patiño MD Primary Care Physician Unavailable Payers Date Identification Numbers Payment Provider Subscriber Policy Number: [id number] Medicare Luz Marina Laguna PayID: [id number] [address] [place] [address] Policy Number: [id number] [facility] Luz Marina Laguna PayID: [id number] [address] [address] [place] [address] Family History Date Family Member(s) Observation Comments Mother Cancer Social History Type Date Description Comments Sex Unknown Marital Status Lives With Occupation Not Currently Working ETOH Use Denies alcohol use Tobacco Use Start: Unknown End: Unknown Patient is a former smoker Recreational Drug Use Denies Drug Use Smoking Status Reviewed: 12/07/18 Patient is a former smoker Allergies, Adverse Reactions, Alerts Active Allergies Reaction Severity Comments Date Penicillins 11/23/2018 Medications Active Medications SIG Qnty Indications Ordering Date Provider Atorvastatin Calcium 1 po qday Unknown 10mg Tablets Gabapentin 1 po at hs Unknown 300mg Capsules Sertraline HCL 1 po qday Nanavamykel, Digant 50mg MD Erma Tablets Synthroid 1 po qday Nanavati, Digant 88mcg Tablets MD Erma Hydrocodone-Acetamino 1 or 2 tablets by 10tabs Unknown phen mouth every 4-6 5-325mg Tablets hours as needed for moderately severe pain Premarin as directed Unknown 0.625mg/GM Cream Vital Signs Date Vital Result Comment 12/07/2018 9:00am Height 62 inches 5'2" Weight 140.00 lb Heart Rate 60 /min BP Systolic Sitting 112 mmHg BP Diastolic Sitting 72 mmHg Respiratory Rate 12 /min Pain Level 0 BMI (Body Mass Index) 25.6 kg/m2 11/23/2018 1:27pm Height 62 inches 5'2" Weight 142.00 lb BP Systolic Sitting 124 mmHg BP Diastolic Sitting 74 mmHg Respiratory Rate 16 /min Pain Level 6 BMI (Body Mass Index) 26.0 kg/m2 Procedures Date Code Description Status 11/23/2018 20512 Short Arm Cast Application Completed Encounters Type Date Location Provider Dx Diagnosis Office Visit 11/23/2018 Orthopedic Chong Sosa, S52.511A Disp fx of right 1:00p [facility] AT radial styloid [place] process, init for clos fx Plan of Treatment Future Appointment(s):01/06/2019 9:30 am - Chong Sosa MD at [facility] AT [facility]64/24/2019 - Chong Sosa, MDS52.511D Displaced fracture of right radial styloid process, subsequeNew Xrays:Wrist Right 3+ VWS, Ordered: 12/07/18Comments:use braceFollow up:Follow up: 4 weeks
--- OUTSIDE RECORDS SUMMARY | 2018-12-19 14:43 | XMS REPORT | Continuity of Care Document ---
:1940 External Reference #:[id number] Author Name Diane Rowe Care Team Providers Name Role Phone Ramirez Patiño MD Primary Care Physician Unavailable Payers Date Identification Numbers Payment Provider Subscriber Policy Number: [id number] Medicare Luz Marina Laguna PayID: [id number] [address] [place] [address] Policy Number: [id number] [facility] Luz Marina Laguna PayID: [id number] [address] [address] [place] [address] Family History Date Family Member(s) Observation Comments Mother Cancer Social History Type Date Description Comments Sex Unknown Marital Status Lives With Occupation Not Currently Working ETOH Use Denies alcohol use Tobacco Use Start: Unknown End: Unknown Patient is a former smoker Recreational Drug Use Denies Drug Use Allergies, Adverse Reactions, Alerts Active Allergies Reaction Severity Comments Date Penicillins 11/23/2018 Medications Active Medications SIG Qnty Indications Ordering Date Provider Atorvastatin Calcium 1 po qday Unknown 10mg Tablets Gabapentin 1 po at hs Unknown 300mg Capsules Sertraline HCL 1 po qday Haroon Digant 50mg MD Erma Tablets Synthroid 1 po qday Haroon, Digant 88mcg Tablets MD Erma Hydrocodone-Acetamino 1 or 2 tablets by 10tabs Unknown phen mouth every 4-6 5-325mg Tablets hours as needed for moderately severe pain Premarin as directed Unknown 0.625mg/GM Cream Vital Signs Date Vital Result Comment 11/23/2018 1:27pm Height 62 inches 5'2" Weight 142.00 lb BP Systolic Sitting 124 mmHg BP Diastolic Sitting 74 mmHg Respiratory Rate 16 /min Pain Level 6 BMI (Body Mass Index) 26.0 kg/m2 Procedures Date Code Description Status 11/23/2018 48700 Short Arm Cast Application Completed Plan of Treatment Future Appointment(s):12/07/2018 9:00 am - Chong Sosa MD at [facility] AT [facility]22/10/2019 - Chong Sosa, MDS52.511A Displaced fracture of right radial styloid process, initialFollow up:Follow up: 2 weeks
--- OUTSIDE RECORDS SUMMARY | 2018-12-19 14:43 | XMS REPORT | Continuity of Care Document ---
:1940 External Reference #:[id number] Author Name Ramirez Patiño MD Address [address] [place] [address] Care Team Providers Name Role Phone Ramirez Patiño MD Primary Care Physician Unavailable Payers Date Identification Numbers Payment Provider Subscriber Effective: 2003 Policy Number: [id number] Medicare Part B Luz Marina Laguna Group Name: [facility] [address] PayID: [id number] [place] [address] Effective: 2016 Policy Number: [id number] [employer] Marina Laguna Group Number: [id number] [address] [address] Group Name: [employer] [place] [address] PayID: [id number] Problems Active Problems Provider Date Hyperlipidemia Ramirez [...] Patient has never smoked Smoking Status Reviewed: 11/26/18 Patient has never smoked Allergies, Adverse Reactions, Alerts Active Allergies Reaction Severity Comments Date PCN Diffuse Swelling. 02/09/2003 Penicillin 01/26/2018 Inactive Allergies NKDA 11/04/2014 Medications Active Medications SIG Qnty Indications Ordering Date Provider Calcium 500 + D3 Haroon, 11/26/2018 Ramirez Ritchie MD [id number] Chewtabs Atorvastatin Calcium Take 1 Tablet 90tabs Haroon, 02/19/2018 Daily Ramirez Ritchie MD 10mg Tablets Levothyroxine Sodium Take 1 Tablet 90tabs Haroon, 03/04/2017 Daily Ramirez Ritchie MD 88mcg Tablets Ranitidine HCL take 1 tablet by 180tabs Haroon, 09/20/2015 150mg mouth 2 times Ramirez Ritchie MD Tablets daily Multiple Vitamin 90tabs Haroon, 11/08/2014 Ramirez Ritchie MD Tablets Sertraline HCL Take 1 Tablet 90tabs [place], 11/08/2014 50mg Daily Ramirez Ritchie MD Tablets Prolia administer 1 cubic Unknown 60mg/ml Soln centimeters every Prefill Syringe 6 months History Medications Shingrix 0.5 milliliters 2units Haroon, 10/15/2017 - 50mcg intramuscular now Ramirez Ritchie MD 01/26/2018 Suspension Rec and 6 month later Zostavax 1 dose 1units Haroon, 09/20/2015 - intramuscular x 1 Ramirez Ritchie MD 11/14/2015 12251Gja/0.65ML Solution Rec Levoxyl take 1 tablet daily [...] day Ramirez Ritchie MD 09/20/[address] 1 by mouth every [facility], 11/08/2014 - 5mg Tablets day Ramirez Ritchie MD 09/20/2015 Actonel 1 by mouth every endo Una Olvera, 11/04/2014 - 35mg Tablets week [employer] 07/03/2016 Ambien 1/2-1 po qhs prn 30tabs [...] 11/21/2003 - 10mg Tablets JJ Ruiz 02/19/2018 [place] Thyroid one tab po qd 90tabs Kenn Escobar 09/19/2003 - 90mg 02/19/2018 Tablets Celebrex 1 PO bid prn 180caps 846.0 Kenn Escobar 09/16/2003 - 200mg 02/19/2018 Capsules Maxzide-25 1 po qam 30tabs 782.3 Kenn Escobar 09/16/2003 - 25mg;37.5 11/21/2003 mg Tablets Ambien one to two po qhs 30tabs 307.41 Kenn Escobar 03/10/2003 - 5mg Tablets prn sleep 01/09/2005 Miralax mix as directed prn Onejar 564.00 Shantel Cesar 03/10/2003 - 255gm Powder constipation JJ Ruiz 11/21/2003 Prilosec 1 PO qd 30caps 530.81 Kenn Escobar, 12/24/2002 - 20mg Caps 02/19/2018 Maxzide 1 po qam 30tabs 782.3 Kenn Escobar, 12/24/2002 - 37.5/25 Tabs 03/10/2003 Elavil 90tabs V70.0 LatatahirShantel 11/10/2002 - 10mg Tablets AJJ 12/21/2003 Butalbital/Apap/Caff 1-2 po q 4 hrs.prn 90tabs 379.91 Kenn Escobar, 03/2003 - eine 10/08/2004 Tabs Flonase 1 Kismet Each 3units Kenn Escobar, 10/13/2002 - Inhaler Nostril qd 02/19/2018 Celebrex [...] 8mg 02/19/2018 Tablets Celebrex One PO qam 90unKenn Malin, 07/23/2002 - 100mg 09/02/2002 Fioricet one - two po q4h 30units Kenn Escobar, 07/23/2002 - prn 03/10/2003 [place] Thyroid 1 tab po qd 30units Honoriohoangtahir Shantel 05/11/2002 - 60mg AJJ 11/21/2003 Zyrtec One qd 90units Kenn Escobar, [...] Code Status Date Vaccine Reaction Lot # 48129 Given 02/19/2018 Fluzone Highdose Age 65 And [id number] Over Preservative & Antibiotic Free 85983 Given 01/13/2018 Shingrix (Shingles) Zoster Vaccine HZV, Recombinant, Subunit, Adj 04618 Given 10/15/2017 Shingrix (Shingles) Zoster Vaccine HZV, Recombinant, Subunit, Adj 92398 Given 04/17/2017 Pneumococcal 23 Immunization Pt tolerated well [id number] Adult Or Immunosuppressed Patient 48035 Given 04/17/2017 Fluzone Highdose Age 65 And Pt tolerated well [id number] Over Preservative & Antibiotic Free 21892 Given 07/03/2016 Fluzone Highdose Age 65 And [id number] Over Preservative & Antibiotic Free 72189 Given 09/20/2015 Tdap (Adacel) Ages 7 And Above [id number] Only 12423 Given 03/22/2015 Influenza Vac, Quadrivalent, [id number] Split, 0.5mL Dosage, Im Use 32005 Given 03/22/2015 Prevnar 13 Pneumococal [id number] Conjugate Vaccine 04288 Given 05/15/2004 Afluria Or Fluvirin Flu Vac Intramuscular 81057 Given 05/02/2003 Afluria Or Fluvirin Flu Vac Intramuscular 33690 Given 05/02/2003 Afluria Or Fluvirin Flu Vac Intramuscular 01644 Given 05/07/2002 Passive Immunization, Isg Deleted 1998 41089 Given 05/07/2002 Afluria Or Fluvirin Flu Vac Intramuscular 60220 Given 05/14/2001 Afluria Or Fluvirin Flu Vac Intramuscular 00727 Given 05/16/2000 Influenza Virus Vaccine, Whole Virus, Intramuscular Or Jet Inj. Vital Signs Date Vital Result Comment 11/26/2018 3:01pm Body Temperature 96.4 F Weight 144.00 lb Heart Rate 82 /min BP Systolic 122 mmHg BP Diastolic 72 mmHg Respiratory Rate 16 /min Height 62 inches 5'2" O2 % BldC Oximetry 98 % BMI (Body Mass Index) 26.3 kg/m2 10/26/2018 1:24pm Body Temperature 97.4 F Weight [...] 16 /min 11/21/2003 10:13am Weight 134.00 lb NL=988/35 500/40 1000/40 8000/40 Heart Rate 90 /min EQ=962/35 500/35 1000/45 2000/35 8000/55 BP Systolic 118 [...] - Glucose NEGATIVE Left Visual Acuity Distance 2009/02/2002 2:19pm Body Temperature 97.6 F Heart Rate 80 /min BP Systolic 150 mmHg BP Diastolic 92 mmHg Results Test Date Facility Test Result H/L Range Note CBC with Auto Diff-fcmg 10/19/2018 [facility] 4.3 K/uL 4.1-11.0 1 RBC 4.11 [...] ng/mL 30-100 10 Laboratory test finding 07/08/2018 [facility] TSH 1.37 uIU/mL 0.35-4.94 Lipid 07/08/2018 [facility] Cholesterol 196 mg/dL 50-199 Triglycerides 115 mg/dL 30-200 HDL 58 mg/dL 35-85 11 Chol/ HDL Ratio 3.4 ratio Low 3.7-5.6 VLDL 23 mg/dL 2-29 LDL (Calc) 115 mg/dL High 20-99 12 Laboratory test finding 07/08/2018 [facility] Vitamin D 25 Hydroxy 41 ng/mL 30-100 [...] K/uL 0.0-0.3 CBC with Auto Diff-fcmg 06/01/2018 [facility] 4.2 K/uL 4.1-11.0 19 RBC 4.03 [...] 0.0 K/uL 0.0-0.3 Comprehensive Met Panel-[facility]CMG 06/01/2018 [facility] Sodium 140 mmol/L 135- 146 20 Potassium [...] Z#PH Urine 6.0 Z#Blood, Urine - Z#Specific [place] 1.015 Z#Ketones Urine - Z#Bili,Urine - Z#Glu Urine - CBC with Auto Diff-fcmg 01/26/2018 [facility] 4.8 K/uL 4.1-11.0 25 RBC 4.21 [...] 0.1 K/uL 0.0-0.3 Comprehensive Met Panel-[facility] 01/26/2018 [facility] Sodium 144 mmol/L 135- 146 26 Potassium [...] 5-15 41 CBC with Auto Diff-fcmg 10/08/2017 [facility] WBC 4.6 K/uL 4.1-11.0 RBC 4.10 M/uL [...] 0.1 K/uL 0.0-0.3 Comprehensive Met Panel-[facility] 07/14/2017 [facility] Sodium 140 mmol/L 135- 146 42 Potassium [...] Gap 7 mmol/L 7-16 46 Lipid 07/14/2017 [facility] Cholesterol 248 mg/dL High 50-199 Triglycerides 116 mg/dL 30-200 HDL 51 mg/dL 35-85 47 Chol/ HDL Ratio 4.9 ratio 3.7-5.6 VLDL 23 mg/dL 2-29 LDL (Calc) 174 mg/dL High 20-99 48 Laboratory test finding 07/14/2017 [facility] Vitamin B12 296 pg/mL 180- 914 Vitamin D 25 Hydroxy 42 ng/mL 30-100 49 CBC With Auto Diff 07/14/2017 [facility] 5.2 K/uL 4.1-11.0 RBC 4.19 M/uL [...] K/uL 0.0-0.3 CBC With Auto Diff 04/10/2017 [facility] 4.7 K/uL 4.1-11.0 RBC 4.28 M/uL [...] 0.1 K/uL 0.0-0.3 Comprehensive Met Panel-[facility] 04/10/2017 [facility] Sodium 140 mmol/L 135- 146 50 Potassium [...] Z#PH Urine 6.0 Z#Blood, Urine - Z#Specific [place] 1.015 Z#Ketones Urine - Z#Bili,Urine - Z#Glu Urine - CBC With Auto Diff 12/02/2016 [facility] WBC 4.6 K/uL 4.1-11.0 57 RBC 4.20 [...] 0.1 K/uL 0.0-0.3 Comprehensive Metabolic (CMP) 12/02/2016 [facility] Sodium 141 mmol/L 135- 146 58 Potassium [...] Gap 13 mmol/L 7-16 62 Lipid 12/02/2016 [facility] Cholesterol 243 mg/dL High 50-199 Triglycerides 134 mg/dL 30-200 HDL 56 mg/dL 35-85 63 Chol/ HDL Ratio 4.3 ratio 3.7-5.6 VLDL 27 mg/dL 2-29 LDL (Calc) 160 mg/dL High 20-99 64 Laboratory test finding 12/02/2016 [facility] Vitamin B12 337 pg/mL 180- 914 Vit D,25 Hydroxy 32 ng/mL 31-100 Esr 2 mm/hr 0-20 TSH 1.64 uIU/mL 0.35-4.94 CBC With Auto Diff 07/03/2016 [facility] WBC 6.1 K/uL 4.1-11.0 65 RBC 4.41 [...] 0.0 K/uL 0.0-0.3 Comprehensive Metabolic (CMP) 07/03/2016 [facility] Sodium 140 mmol/L 134- 142 Potassium 4.2 [...] 0.1 K/uL 0.0-0.3 Comprehensive Metabolic (CMP) 11/28/2015 [facility] Sodium 140 mmol/L 134- 142 Potassium 4.2 [...] - Stool CBC With Auto Diff 09/28/2015 [facility] WBC 5.1 K/uL 4.1-11. 0 RBC 4.32 [...] 0.1 K/uL 0.0-0.3 Comprehensive Metabolic (CMP) 09/28/2015 [facility] Sodium 139 mmol/L 134- 142 Potassium 4.1 [...] Safia Egfr >60 >60 76 Lipid 09/28/2015 [facility] Cholesterol 253 mg/dL High 50-199 Triglycerides 134 mg/dL 30-200 HDL 63 mg/dL 35-85 77 Chol/ HDL Ratio 4.0 ratio 3.7-5.6 VLDL 27 mg/dL 2-29 LDL (Calc) 163 mg/dL High 20-99 78 Laboratory test finding 09/28/2015 [facility] TSH 3.14 uIU/mL 0.35-4.94 Vitamin B12 412 pg/mL 180-914 Vit D,25 Hydroxy 43 ng/mL 31-100 CBC With Auto Diff 03/22/2015 [facility] W[facility] 7.0 K/uL 4.1-11.0 79 RBC 4.47 [...] High 20-99 83 Laboratory test finding 03/22/2015 [facility] TSH 0.51 uIU/mL 0.35-4.94 Vit D,25 Hydroxy 69 ng/mL 31-100 Vitamin B12 523 pg/mL 180-914 CBC With Auto Diff 11/08/2014 [facility] WBC 5.4 K/uL 4.1-11.0 84 RBC 4.15 [...] 0.1 K/uL 0.0-0.3 Comprehensive Metabolic (CMP) 11/08/2014 [facility] Sodium 139 mmol/L 134- 142 Potassium 4.2 [...] Use) TSH 0.93 uIU/ml 0.50 -6.00 finding [facility] [place] [address] [phone] Lipid Panel 02/03/2004 [facility] (Do not Use) Cholesterol 194 mg/dL 50 -199 [facility] [place], [place] [id number] [phone] Triglycerides 190 mg/dL 30-200 HDL 59 mg/dL 35-85 Chol/HDL Ratio 3.3 Ratio VLDL 38 mg/dL LDL (Calc) 97 mg/dL 20-129 Lipid Panel 12/21/2003 [facility] (Do not Use) Cholesterol 176 mg/dL 50 -199 [facility] [place], [place] [id number] [phone] Triglycerides 233 mg/dL High 30-200 HDL 48 mg/dL 35-85 Chol/HDL Ratio 3.7 Ratio VLDL 47 mg/dL LDL (Calc) 81 mg/dL 20-129 Laboratory test 11/21/2003 [facility] (Do not Use) Lanoxin 0.9 ng/ml 0.9-2.0 finding [facility] (Digoxin) [place] [address] [phone] CBC 11/21/2003 [facility] (Do not Use) WBC 6.6 K/ul 4.1-10.9 [facility] [place] [address] [phone] RBC 4.13 M/ul Low 4.20-6.30 Hemoglobin 13.0 [...] (Do not Use) Sodium 140 mmol/L 135-145 [facility] [place] [address] [phone] Potassium 4.2 mmol/L 3.4-5.3 Chloride 107 mmol/L [...] Use) TSH 1.60 uIU/ml 0.50 -6.00 finding [facility] [place] [address] [phone] Lipid Panel 11/21/2003 [facility] (Do not Use) Cholesterol 212 mg/dL High 50-199 [place] [address] [phone] Triglycerides 314 mg/dL High 30-200 HDL 51 mg/dL 35-85 Chol/HDL Ratio 4.2 Ratio VLDL 63 mg/dL LDL (Calc) Triglyceride tess <SEE NOTE> mg/dL 20-129 89 Laboratory test 11/21/2003 [facility] (Do not Use) Iron, Total 64 g/dL 50-170 [place] [address] [phone] Direct LDL 117 mg/dL 20-129 Laboratory test 11/01/2003 [facility] (Do not Use) TSH 0.94 uIU/ml 0.50 -6.00 [place] [address] [phone] Laboratory test 09/16/2003 [facility] (Do not Use) TSH 0.04 uIU/ml Low 0.50-6.00 [place] [address] [phone] Hepatic Liver 09/16/2003 [facility] (Do not Use) Total 6.9 g/dL 6.2- 8.3 Panel [facility] [place] [address] [phone] Albumin 3.7 g/dL 3.5-5.0 Total Bilirubin 0.6 mg/dL 0.1-1.3 Direct Bilirubin 0.0 mg/dL 0.0-0.4 Ast 23 U/L 8-42 Alt 18 U/L 3-42 Alkaline Phosphatase 51 U/L 24-140 Basic (BMP) 03/10/2003 [facility] (Do not Use) Sodium 139 mmol/L 135- 145 [place] [address] [phone] Potassium 4.1 mmol/L 3.4-5.3 Chloride 107 mmol/L 98-111 Carbon Dioxide 26 mmol/L 22-33 Glucose 82 mg/dL 70-105 BUN 9 mg/dL 6-26 Creatinine 0.8 mg/dL 0.5-1.5 BUN/CR 11 Ratio Low 12.0-20.0 Anion Gap 10 mmol/L 10-20 Calcium 8.9 mg/dL 8.6-10.3 CBC 02/02/2003 [facility] (Do not Use) WBC 6.4 K/ul 4.1-10.9 90 [facility] [place] [address] [phone] RBC 3.83 M/ul Low 4.2-6.3 Hemoglobin 12.4 [...] Use) Total Protein 6.5 g/dL 6.2-8.3 Panel [facility] [place] [address] [phone] Albumin 3.3 g/dL Low 3.5-5.0 Total Bilirubin 0.5 mg/dL 0.1-1.3 Direct Bilirubin 0.0 mg/dL 0.0-0.4 Ast 19 U/L 8-42 Alt 15 U/L 3-42 Alkaline Phosphatase 42 U/L 24-140 Laboratory test 11/10/2002 [facility] (Do not Use) Lanoxin 1.0 ng/ml 0.9-2.0 finding [facility] (Digoxin) [place] [address] [phone] Laboratory test 11/10/2002 [facility] (Do not Use) TSH 2.29 0.50-6.00 finding [facility] uIU/[place] [address] [phone] Lipid Panel 11/10/2002 [facility] (Do not Use) Cholesterol 257 mg/dL High 50-199 [facility] [place] [address] [phone] Triglycerides 219 mg/dL High 30-200 HDL 63 mg/dL 35-85 Chol/HDL Ratio 4.1 Ratio VLDL 44 mg/dL LDL (Calc) 150 mg/dL High 20-129 Hepatic Liver 09/02/2002 [facility] (Do not Use) Total Protein 7.0 g/dL 6.2-8.3 Panel [facility] [place], [place] [id number] [phone] Albumin 3.8 g/dL 3.5-5.0 Total Bilirubin 0.6 mg/dL 0.1-1.3 Direct Bilirubin 0.0 mg/dL 0.0-0.4 Ast 24 U/L 8-42 Alt 17 U/L 3-42 Alkaline Phosphatase 54 U/L 24-140 CBC 09/02/2002 [facility] (Do not Use) WBC 7.5 K/ul 4.1-10.9 [facility] [place] [address] [phone] RBC 4.10 M/ul Low 4.2-6.3 Hemoglobin 13.4 [...] not Use) Sodium 135 mmol/L 135- 145 [facility] [place] [address] [phone] Potassium 4.3 mmol/L 3.4-5.3 Chloride 102 mmol/L 98-111 Carbon Dioxide 27 mmol/L 22-33 Glucose 111 mg/dL High 70-105 BUN 12 mg/dL 6-26 Creatinine 0.7 mg/dL 0.5-1.5 BUN/CR 17 Ratio 12.0-20.0 Anion Gap 10 mmol/L 10-20 Calcium 9.6 mg/dL 8.6-10.3 Laboratory test 05/07/2002 [facility] (Do not Use) TSH 0.97 uIU/ml 0.50 -6.00 finding [facility] [place] [address] [phone] CBC 09/16/2001 [facility] (Do not Use) WBC 5.9 K/ul 4.1-10.9 [facility] [place] [address] [phone] RBC 3.91 M/ul Low 4.2-6.3 Hemoglobin 12.8 [...] (Do not Use) Sodium 139 mmol/L 137-145 [facility] [place] [address] [phone] Potassium 4.0 mmol/L 3.6-5.0 Chloride 101 mmol/L [...] Use) TSH 0.66 uIU/ml 0.47 -6.90 [place] [address] [phone] Laboratory test 08/24/2001 [facility] (Do not Use) Digoxin 1.04 ng/dL 0.8-2.0 [place] [address] [phone] Hepatic Liver 08/24/2001 [facility] (Do not Use) Total Protein 7.0 g/dL 6.3-8.2 [place] [address] [phone] Albumin 3.7 g/dL 3.5-5.0 Total Bilirubin 0.1 mg/dL Low 0.2-1.3 Direct Bilirubin 0.0 mg/dL 0.0-0.4 Ast 22 U/L 14-36 Alt 21 U/L 9-52 Alkaline Phosphatase 52 U/L 38-126 Laboratory test 08/24/2001 [facility] (Do not Use) TSH 1.87 uIU/ml 0.47 -6.90 [place] [address] [phone] CBC 08/24/2001 [facility] (Do not Use) WBC 6.4 K/ul 4.1-10.9 [place] [address] [phone] RBC 4.20 M/ul 4.2-6.3 Hemoglobin 13.7 GM/dl [...] CLINICALLY INDICATED, PLEASE CONTACT THE [facility]CRO[facility]OLOGY LAB[facility]ORY [phone] WITHIN 3 DAYS OF THIS REPORT. Unless otherwise specified, [place] [address] 70 SPECIMEN DESCRIPTION STOOL SPECIAL REQUESTS NONE [...] 11/30/2015 Unless otherwise specified, testing [place] [address] 71 SPECIMEN DESCRIPTION STOOL SPECIAL REQUESTS NONE RESULT NEGATIVE FOR ENTERIC PATHOGENS BY PCR. NOTE: THIS MOLECULAR ASSAY DETECTS THE FOLLOWING ENTERIC PATHOGENS: CAMPYLOBACTER GROUP (COLI, JEJUNI, INOCENCIO), SALMONELLA SPECIES, SHIGELLA SPECIES (DYSENTERIAE, BOYDII, SONNEI, FLEXNERI), VIBRIO GROUP (CHOLERAE, PARAHAEMOLYTICUS), YERSINIA ENTEROCOLITICA, SHIGA TOXIN 1, SHIGA TOXIN 2, NOROVIRUS GROUP 1 AND 2, ROTAVIRUS A. REPORT STATUS FINAL 11/30/2015 Unless otherwise specified, testing [place] [address] 72 This sample is drawn by:RHONA 71 [...] FORWARD TO DR. DARNELL ROBERTSON FAX # [phone] Procedures Date Code Description Status 07/13/2018 93617 Admin Of Inj (Therapeutic Phrophylactic Or Diagnostic Completed Subq Inj 01/07/2018 82899 Admin Of Inj (Therapeutic Phrophylactic Or Diagnostic Completed Subq Inj 09/22/2017 04672066 Mammogram Completed 09/22/2017 624413302 Bone Mineral Density Test Completed 01/10/2017 51675 ECHO Transthoracis 2D W Spectral Doppler Completed 12/02/2016 46658 Electrocardiogram Complete Completed 10/31/2015 [id number] Bone Mineral Density Test Completed 09/20/2015 20971 Spirometry /PFT W/O Bronchodialator Completed 09/20/2015 80024 Electrocardiogram Complete Completed 06/16/2013 [id number] Mammogram Completed 01/02/2006 463375762 Bone Mineral Density Test Completed 11/21/2003 30939 Electrocardiogram Complete Completed 12/24/2002 80463 Electrocardiogram Complete Completed 11/10/2002 19004 Pure Tone Audiometry, Air Completed 11/10/2002 13951 Electrocardiogram Complete Completed 11/10/2002 39215 Spirometry /PFT W/O Bronchodialator Completed 09/29/2001 85270 Measure Blood Oxygen Level Single Determination Completed 09/29/2001 79318 Spirometry /PFT W/O Bronchodialator Completed 09/29/2001 76979 ECG Monitor/Report W/O Superimposition Scanning Completed 09/16/2001 71647 Measure Blood Oxygen Level Single Determination Completed 09/16/2001 75421 Electrocardiogram Complete Completed 08/24/2001 55142 Charge Back Completed 11/26/2000 21908 Measure Blood Oxygen Level Single Determination Completed 11/26/2000 14330 ECG Monitor/Report W/O Superimposition Scanning Completed 07/16/2000 65733 Sigmoidoscopy Diagnostic Completed 07/02/2000 53650 Electrocardiogram Complete Completed Encounters Type Date Location Provider Dx Diagnosis Office Visit 11/26/2018 [facility] Ramirez Patiño E78.5 Hyperlipidemia, 2:30p Maria Elena Ritchie MD unspecified K21.9 Gastro-esophageal reflux disease without esophagitis M15.0 Primary generalized (osteo)arthritis M81.0 Age-related osteoporosis w/o current pathological fracture M54.9 Dorsalgia, unspecified M85.80 Oth disrd of bone density and structure, unspecified site R42 Dizziness and giddiness F33.0 Major depressive disorder, recurrent, mild F41.1 Generalized anxiety disorder E03.9 Hypothyroidism, unspecified S52.511D Disp fx of r radial styloid pro, 7thD E55.9 Vitamin D deficiency, unspecified Office Visit 10/26/[address] [facility] [place], E78.5 Hyperlipidemia, 1:30p Maria Elena Ritchie MD unspecified K21.9 Gastro-esophageal reflux disease without esophagitis M15.0 Primary generalized (osteo)arthritis M81.0 Age-related osteoporosis w/o current pathological fracture M54.9 Dorsalgia, unspecified R42 Dizziness and giddiness F33.0 Major depressive disorder, recurrent, mild E03.9 Hypothyroidism, unspecified E55.9 Vitamin D deficiency, unspecified Office Visit 08/05/2018 11:00a [facility] Ramirez Patiño R42 Dizziness and Maria Elena Ritchie MD giddiness G43.101 Migraine with aura, not intractable, with status migrainosus M79.644 Pain in RIGHT finger(s) [facility] E78.5 Hyperlipidemia, 9:30a Maria Elena Ritchei MD unspecified K21.9 Gastro-esophageal reflux disease without esophagitis M15.0 Primary generalized (osteo)arthritis M81.0 Age-related osteoporosis w/o current pathological fracture M54.9 Dorsalgia, unspecified R42 Dizziness and giddiness F33.0 Major depressive disorder, recurrent, mild E03.9 Hypothyroidism, unspecified E55.9 Vitamin D deficiency, unspecified Z00.00 Encntr for general adult medical exam w/o abnormal findings E66.3 Overweight Z68.26 Body mass index (BMI) 26.0-26.9, adult Office Visit 06/01/2018 [facility], Z01.818 Encounter for 10:00a JJ Gunderson other preprocedural examination H50.00 Unspecified esotropia E78.5 Hyperlipidemia, unspecified K21.9 Gastro-esophageal reflux disease without esophagitis M15.0 Primary generalized (osteo)arthritis F33.0 Major depressive disorder, recurrent, mild E03.9 Hypothyroidism, unspecified Z68.26 Body mass index (BMI) 26.0-26.9, adult Office Visit 02/19/2018 [facility] [place], E78.5 Hyperlipidemia, 1:45p Maria Elena Ritchie MD unspecified K21.9 Gastro-esophageal reflux disease without esophagitis M15.0 Primary generalized (osteo)arthritis M81.0 Age-related osteoporosis w/o current pathological fracture M54.9 Dorsalgia, unspecified R42 Dizziness and giddiness F33.0 Major depressive disorder, recurrent, mild E03.9 Hypothyroidism, unspecified E55.9 Vitamin D deficiency, unspecified Z23 Encounter for immunization Office Visit 01/26/2018 [facility] [place] [facility], Z01.818 Encounter for 8:20a JJ Gunderson other preprocedural examination H25.11 Age-related nuclear cataract, RIGHT eye H25.13 Age-related nuclear cataract, bilateral E03.9 Hypothyroidism, unspecified F33.9 Major depressive disorder, recurrent, unspecified K21.9 Gastro-esophageal reflux disease without esophagitis Z68.25 Body mass index (BMI) 25.0-25.9, adult Office Visit 10/15/2017 [facility] [place], E78.5 Hyperlipidemia, 10:00a Maria Elena Ritchie MD unspecified E03.9 Hypothyroidism, unspecified K21.9 Gastro-esophageal reflux disease without esophagitis F33.9 Major depressive disorder, recurrent, unspecified R42 Dizziness and giddiness M54.9 Dorsalgia, unspecified M81.0 Age-related osteoporosis w/o current pathological fracture Z68.25 Body mass index (BMI) 25.0-25.9, adult Office Visit 07/18/2017 [facility] [place], E78.5 Hyperlipidemia, 11:00a Maria Elena Ritchie MD unspecified E03.9 Hypothyroidism, unspecified K21.9 Gastro-esophageal reflux disease without esophagitis F33.9 Major depressive disorder, recurrent, unspecified R42 Dizziness and giddiness M54.9 Dorsalgia, unspecified E55.9 Vitamin D deficiency, unspecified M81.0 Age-related osteoporosis w/o current pathological fracture Office Visit 04/17/2017 [place] Lexa Patiño, E78.5 Hyperlipidemia, 11:30a [facility] Ramirez Ritchie MD unspecified E03.9 Hypothyroidism, unspecified K21.9 Gastro-esophageal reflux disease without esophagitis Z00.01 Encounter for general adult medical exam w abnormal findings Z23 Encounter for immunization E55.9 Vitamin D deficiency, unspecified F33.9 Major depressive disorder, recurrent, unspecified R42 Dizziness and giddiness M54.9 Dorsalgia, unspecified Office Visit 01/15/2017 10:30a [place] Ramirez Mclean R42 Dizziness and Maria Elena Ritchie MD giddiness R26.81 Unsteadiness on feet F33.9 Major depressive disorder, recurrent, unspecified K21.9 Gastro-esophageal reflux disease without esophagitis E78.5 Hyperlipidemia, unspecified E03.9 Hypothyroidism, unspecified R51 Headache Office Visit 12/02/2016 9:30a [place] Ramirez Mclean, R11.0 N[facility] Associates R53.83 Other fatigue R42 Dizziness and giddiness R26.81 Unsteadiness on feet I65.22 Occlusion and stenosis of LEFT carotid artery R51 Headache E55.9 Vitamin D deficiency, unspecified Office Visit 07/03/2016 2:00p Una Alexander, F33.9 Major depressive Associates [employer] disorder, recurrent, unspecified F41.1 Generalized anxiety disorder K21.9 Gastro-esophageal reflux disease without esophagitis E03.9 Hypothyroidism, unspecified Z13.6 Encounter for screening for cardiovascular disorders Z23 Encounter for immunization Office Visit 12/06/2015 11:40a [facility] Alexander, R19.7 Diarrhea, Associates [employer] unspecified K21.9 Gastro-esophageal reflux disease without esophagitis Office Visit 11/28/2015 Julio Una Rosen, K21.9 Gastro- esophageal 10:00a [facility] [employer] reflux disease without esophagitis R19.7 Diarrhea, unspecified F33.9 Major depressive disorder, recurrent, unspecified F41.1 Generalized anxiety disorder Z13.6 Encounter for screening for cardiovascular disorders Office Visit 11/14/2015 11:00a [facility], Una, F41.1 Generalized [facility] [employer] anxiety disorder F33.9 Major depressive disorder, recurrent, unspecified K21.9 Gastro-esophageal reflux disease without esophagitis N32.9 Bladder disorder, unspecified R19.7 Diarrhea, unspecified Office Visit 09/20/2015 9:45a [facility] Ramirez Patiño Z00.00 Encntr for Maria Elena Ritchie MD general adult medical exam w/o abnormal findings Z23 Encounter for immunization K21.9 Gastro-esophageal reflux disease without esophagitis F41.1 Generalized anxiety disorder N32.9 Bladder disorder, unspecified E55.9 Vitamin D deficiency, unspecified D51.9 Vitamin B12 deficiency anemia, unspecified F33.9 Major depressive disorder, recurrent, unspecified M54.9 Dorsalgia, unspecified [facility] E03.9 Hypothyroidism, 10:00a [facility] [employer] unspecified K21.9 Gastro-esophageal reflux disease without esophagitis F32.9 Major depressive disorder, single episode, unspecified F41.1 Generalized anxiety disorder N32.9 Bladder disorder, unspecified E55.9 Vitamin D deficiency, unspecified D51.9 Vitamin B12 deficiency anemia, unspecified Z23 Encounter for immunization Office Visit 12/20/2014 1:00p [facility] Una Olvera, 596.9 Bladder [facility] [employer] Disorders Unspec Office Visit 11/08/2014 8:00a [facility] Una Olvera, 596.9 Bladder [facility] [employer] Disorders Unspec 244.9 Hypothyroidism Other Unspec 530.81 [...] Lumbosacral (Joint)(Liga Office Visit 11/21/2003 9:30a Shantel Linton, 780.52 Sleep Disturbance, PA Insomnia Unspecified 244.9 Hypothyroidism Other Unspec 782.3 Edema 564.00 Constipation Unspecified V58.69 Medications Fdc (Current) Use Encounter 530.11 Esophagitis Reflux V70.0 Exam (Adult) General Medical Routine [facility] 379.91 Pain In Or Around Eye 847.2 Sprains & Strains Lumbar 724.3 Sciatica Office Visit 09/16/2003 11:00a Kenn Ortiz MD 307.41 Sleep Disorder Transient Initiating Or Maintaining Sleep 244.9 Hypothyroidism Other Unspec 846.0 Sprains & Strains Sacroiliac Region Lumbosacral (Joint)(Liga 782.3 Edema Office Visit 03/10/2003 12:30p Shantel Linton, 307.41 Sleep Disorder PA Transient Initiating Or [...] Major Recurrent Moderate Office Visit 10/23/2002 12:00p Karen Vernay, Shantel A, PA 784.0 Headache 379.91 Pain In Or [...] Major Recurrent Moderate Plan of Treatment Future Appointment(s):01/08/2019 1:15 pm - Ramirez Patiño MD at [facility]01/12/2019 10:30 am - Infusion, Schedule at Infusion [id number] - Ramirez Patiño MDE78.5 Hyperlipidemia, unspecifiedComments:Labs reviewed [...] medications. Followed by Orthopedist. Will continue to monitor.M85.80 Oth disrd of bone density and structure, unspecified siteComments:Patient advised to continue Calcium+vitamin D and use OTC medication prn for pain.R42 Dizziness and giddinessComments:She has been following with Dr. Hill, neurologist on regular basis. Dr. Hill advised her to start physical therapy. We will continue to monitor.F33.0 Major depressive disorder, recurrent, mildComments:Condition reviewed in detail, the patient's mood is stable at present with current medication regimen, will continue the same. We will continue to monitor.F41.1 Generalized anxiety disorderComments: Stable, will continue current medications.E03.9 Hypothyroidism, unspecifiedComments:The patient was advised to continue on current medication regimen. We will need to monitor her TSH periodically.S52.511D Disp fx of r radial styloid pro, 7thDComments:She fractured her right distal radial styloid recently. She states she is recovering from it. She reports she has been seen by orthopedist. She is currently wearing cast on her right forearm and wrist.E55.9 Vitamin D deficiency, unspecifiedComments:We will continue to monitor through blood work periodically.AllNew Medication:Calcium 500 + D3 250- 500 mg-Unit -Follow up:The patient will follow-up with me in six weeks for reevaluation.
[2018-12-19 14:47] VITALS: BP 133/79
--- NOTE | 2018-12-19 14:56 | UC ---
Truncal Trauma HPI - HPI Summary HPI Summary: Fell last Friday and left sided chest pain under the armpit has been getting worse. More pain with moving the arm. - History Of Current Complaint Chief Complaint: UCGeneralIllness Stated Complaint: S/P FALL(1 WEEK AGO)-LEFT SIDE PAIN WORSENING Time Seen by Provider: 12/19/18 14:49 Hx Obtained From: Patient Onset/Duration: Sudden Onset, Lasting Weeks - 1, Worse Since - onset Onset Of Pain: Post Accident - 2 days Severity Initially: Mild Severity Currently: Moderate Pain Intensity: 0 Mechanism Of Injury: Fall From A Standing Position Aggravating Factor(s): Movement - of the left arm Associated Signs And Symptoms: Positive: Chest Pain. Negative: SOB, Fever, Nausea, Vomiting Related History: Prior Rib Fracture - 4 or 5 years ago - Allergies/Home Medications Allergies/Adverse Reactions: Allergies Allergy/AdvReac Type Severity Reaction Status Date / Time Penicillins Allergy Rash Verified 12/19/18 14:43 PMH/Surg Hx/FS Hx/Imm Hx Endocrine History: Hypothyroidism - Surgical History Surgical History: Yes Surgery Procedure, Year, and Place: BACK SX FOR SPINAL CYST. LAMINECTOMY. HYSTERECTOMY. APPENDIX - Family History Known Family History: Negative: Hypertension, Diabetes - Social History Occupation: Retired Lives: With Family Alcohol Use: None Substance Use Type: None Smoking Status (MU): Former Smoker When Did the Patient Quit Smoking/Using Tobacco: 30 YRS AGO Review of Systems All Other Systems Reviewed And Are Negative: Yes Cardiovascular: Positive: Chest Pain Musculoskeletal: Positive: Arthralgia - right wrist from fracture from fall. Is Patient Immunocompromised?: No Physical Exam Triage Information Reviewed: Yes Appearance: Well-Appearing, No Pain Distress, Well-Nourished, Pain Distress - Only with movement. Vital Signs: Initial Vital Signs Temp 98.4 F 12/19/18 14:44 Pulse 66 12/19/18 14:44 Resp 18 12/19/18 14:44 BP 133/79 12/19/18 14:44 Pulse Ox 99 12/19/18 14:44 Vital Signs Reviewed: Yes Eyes: Positive: Conjunctiva Clear Neck exam: Normal Respiratory Exam: Normal Cardiovascular Exam: Normal Musculoskeletal: Positive: ROM Limited @ - left arm with full flexion/ abduction due to the chest wall pain., Other: - Tenderness on the left lateral posterior ribs 9 and 10 Neurological Exam: Normal Psychological Exam: Normal Skin Exam: Normal Diagnostics - Radiology No standard instances Radiology Interpretation Completed By: ED Physician Summary of Radiographic Findings: No obvious rib fracture Truncal Trauma Course/Dx - Differential Dx/Diagnosis Differential Diagnosis/HQI/PQRI: Chest Wall Contusion, Chest Wall Abrasion, Rib Fracture Provider Diagnosis: Muscle strain of chest wall Discharge - Sign-Out/Discharge Documenting (check all that apply): Patient Departure All imaging exams completed and their final reports reviewed: No - Discharge Plan Condition: Stable Disposition: HOME Patient Education Materials: Muscle Strain (ED) Referrals: Ramirez Patiño MD [Primary Care Provider] - 3 Days (If not improving.) Additional Instructions: Please use the Jose Chi DVD to prevent future falls. - Billing Disposition and Condition Condition: STABLE Disposition: Home
--- NOTE | 2018-12-20 11:04 | UC ---
- Progress Note Progress Note: Radiologist reading of right rib x-rays from December 19, 2018 comes back as no fracture no pneumothorax. Provider's interpretation from the same date was the same therefore there is no discrepancy. Course/Dx - Diagnoses Provider Diagnoses: Muscle strain of chest wall Discharge - Sign-Out/Discharge Documenting (check all that apply): Patient Departure All imaging exams completed and their final reports reviewed: Yes - Discharge Plan Condition: Stable Disposition: HOME Patient Education Materials: Muscle Strain (ED) Referrals: Ramirez Patiño MD [Primary Care Provider] - 3 Days (If not improving.) Additional Instructions: Please use the Jose Chi DVD to prevent future falls. - Billing Disposition and Condition Condition: STABLE Disposition: Home
== END 2018-12-19 15:52 | disposition home or self-care (01) ==
LOC: UCCORT 14:30
DX: S29.012A Strain of muscle and tendon of back wall of thorax, initial encounter (principal); Z88.0 Allergy status to penicillin; Z87.891 Personal history of nicotine dependence; W19.XXXA Unspecified fall, initial encounter; Y92.9 Unspecified place or not applicable
CPT/HCPCS: 99211; G0463

== ENCOUNTER 2019-04-18 12:08 | Emergency (ER) | payer MEDICARE, BC ==
--- OUTSIDE RECORDS SUMMARY | 2019-04-18 12:19 | XMS REPORT | Continuity of Care Document ---
:1940 External Reference #:[id number] Author Name Ramirez Patiño MD Address [address] [place] [address] Care Team Providers Name Role Phone Ramirez Patiño MD - Family Medicine Care Team Information [facility] Director [phone] Ramirez Patiño MD - Family Medicine Care Team Information [facility] Director Ramirez Patiño MD - Family Medicine Care Team Information [facility] Director Catarino Galindo M.D. Care Team Information [facility] Director [phone] Quentin PINEDO M.D. - Neurology Care Team Information [facility] Director [phone] Problems Active Problems Provider Date Hyperlipidemia Ramirez Patiño MD Onset: 07/18/2017 Hypothyroidism Ramirez Patiño MD Onset: 07/18/2017 Social History Type Date Description Comments Sex Unknown ETOH Use Denies alcohol use Tobacco Use Reviewed: 08/05/18 Patient has never smoked Smoking Status Reviewed: 02/26/19 Patient has never smoked Allergies, Adverse Reactions, Alerts Active Allergies Reaction Severity Comments Date PCN Diffuse Swelling. 02/09/2003 Penicillin 01/26/2018 Inactive Allergies NKDA 11/04/2014 Medications Active Medications SIG Qnty Indications Ordering Date Provider Myrbetriq 1 by mouth every 90tabs Haroon, 02/26/2019 50mg Tablets day Ramirez Ritchie MD ER 24HR Calcium 500 + D3 Nanavamykel, 11/26/2018 Ramirez Ritchie MD [id number] Chewtabs Atorvastatin Calcium Take 1 Tablet 90tabs Haroon, 02/19/2018 Daily Ramirez Ritchie MD 10mg Tablets Levothyroxine Sodium Take 1 Tablet 90tabs Nanavamykel, 03/04/2017 Daily Ramirez Ritchie MD 88mcg Tablets Ranitidine HCL take 1 tablet by 180tabs Nikkieavamykel, 09/20/2015 150mg mouth 2 times Ramirez Ritchie MD Tablets daily Multiple Vitamin 90tabs Nanavati, 11/08/2014 Ramirez Ritchie MD Tablets Sertraline HCL Take 1 Tablet 90tabs Nikkieavamykel, 11/08/2014 50mg Daily Ramirez Ritchie MD Tablets Prolia administer 1 cubic Unknown 60mg/ml Soln centimeters every Prefill Syringe 6 months Medications Administered in Office Medication SIG Qnty Indications Ordering Provider Date Prolia 60 mg/ml Infusion, Schedule 01/13/2019 Injection Prolia 60 mg/ml Infusion, Schedule 07/13/2018 Injection Prolia 60 mg/ml Infusion, Schedule 01/07/2018 Injection Immunizations CPT Code Status Date Vaccine Reaction Lot # [id number] Given 02/19/2018 Fluzone Highdose Age 65 And [id number] Over Preservative & Antibiotic Free 80794 Given 01/13/2018 Shingrix (Shingles) Zoster Vaccine HZV, Recombinant, Subunit, Adj 80895 Given 10/15/2017 Shingrix (Shingles) Zoster Vaccine HZV, Recombinant, Subunit, Adj 83217 Given 04/17/2017 Pneumococcal 23 Immunization Pt tolerated well [id number] Adult Or Immunosuppressed Patient 37566 Given 04/17/2017 Fluzone Highdose Age 65 And Pt tolerated well [id number] Over Preservative & Antibiotic Free 27403 Given 07/03/2016 Fluzone Highdose Age 65 And [id number] Over Preservative & Antibiotic Free 96531 Given 09/20/2015 Tdap (Adacel) Ages 7 And Above [id number] Only 10139 Given 03/22/2015 Influenza Vac, Quadrivalent, [id number] Split, 0.5mL Dosage, Im Use 53707 Given 03/22/2015 Prevnar 13 Pneumococal [id number] Conjugate Vaccine 69556 Given 05/15/2004 Afluria Or Fluvirin Flu Vac Intramuscular 71198 Given 05/02/2003 Afluria Or Fluvirin Flu Vac Intramuscular 88168 Given 05/02/2003 Afluria Or Fluvirin Flu Vac Intramuscular 83593 Given 05/07/2002 Passive Immunization, Isg Deleted 1998 99055 Given 05/07/2002 Afluria Or Fluvirin Flu Vac Intramuscular 82175 Given 05/14/2001 Afluria Or Fluvirin Flu Vac Intramuscular 59437 Given 05/16/2000 Influenza Virus Vaccine, Whole Virus, Intramuscular Or Jet Inj. Vital Signs Date Vital Result Comment 02/26/2019 2:47pm Body Temperature 98.7 F Weight 143.00 lb Heart Rate 74 /min BP Systolic 124 mmHg BP Diastolic 72 mmHg Respiratory Rate 16 /min Height 62 inches 5'2" O2 % BldC Oximetry 99 % BMI (Body Mass Index) 26.2 kg/m2 01/14/2019 2:19pm Body Temperature 97.0 F Weight 143.00 lb Heart Rate 69 /min BP Systolic 124 mmHg BP Diastolic 78 mmHg Respiratory Rate 16 /min Height 62 inches 5'2" O2 % BldC Oximetry 96 % BMI (Body Mass Index) 26.2 kg/m2 Results Test Date Facility Test Result H/L Range Note CBC with Auto Diff-fcmg 10/19/2018 [place] WBC 4.3 K/uL 4.1-11.0 1 RBC 4.11 [...] 0.0 K/uL 0.0-0.3 Comprehensive Met Panel-[facility] 10/19/2018 [place] Sodium 140 mmol/L 135- 146 2 Potassium [...] Male Egfr 84 >60 7 Lipid 10/19/2018 [facility] Cholesterol 195 mg/dL 50-199 Triglycerides 97 mg/dL 30-200 HDL 59 mg/dL 35-85 8 Chol/ HDL Ratio 3.3 ratio Low 3.7-5.6 VLDL 19 mg/dL 2-29 LDL (Calc) 117 mg/dL High 20-99 9 Laboratory test finding 10/19/2018 [facility] Vitamin B12 427 pg/mL 180- 914 Vitamin D 25 Hydroxy 30 ng/mL 30-100 10 1 This sample is drawn by:dg 2 Updated reference range on new analyzer 3 Updated reference range on new analyzer 4 Updated reference range 10-14-2018 5 Updated Reference Range 6 Concerning GFR Guidelines for Americans: Normal function or mild renal disease, if clinically at risk: >/= 60 mL/min Moderately decreased: 30-59 Severely decreased: 15-29 Renal failure: <15 There is reduced accuracy above 60ml/min/1.73 m squared, but the numeric value may be clinically useful in the near 60 range 7 Concerning GFR Guidelines: Normal function or mild renal disease, if clinically at risk: >/= 60 mL/min Moderately decreased: 30-59 Severely decreased: 15-29 [...] risk for coronary artery disease. Results > or = to 60 mg/dL are considered a negative risk factor. 9 Per NCEP ATP III Guidelines: Normal Population <130 Patients with medical conditions: CHD/DM Optimal: <100 Borderline high: 130-159 High: 160-189 Very high: >189 10 Clinical Guidelines for recommended serum 25(OH)Vitamin D Deficient at less than 20 ng/mL Insufficient at 20 to <30 ng/mL Sufficient at 30-100 ng/mL Toxicity at greater than 100 ng/mL Procedures Date Code Description Status 01/13/2019 41177 Admin Of Inj (Therapeutic Phrophylactic Or Diagnostic Completed Subq Inj 12/31/2018 [id number] Bone Mineral Density Test Completed 09/22/2017 [id number] Bone Mineral Density Test Completed 09/22/2017 [id number] Mammogram Completed 10/31/2015 [id number] Bone Mineral Density Test Completed 01/02/2006 [id number] Bone Mineral Density Test Completed Medical Devices Description No Information Available Encounters Type Date Location Provider Dx Diagnosis Office Visit 01/14/2019 [facility] Ramirez Patiño E78.5 Hyperlipidemia, 2:45p Maria Elena Ritchie MD unspecified K21.9 Gastro-esophageal reflux disease without esophagitis M15.0 Primary generalized (osteo)arthritis M81.0 Age-related osteoporosis w/o current pathological fracture M85.80 Oth disrd of bone density and structure, unspecified site R42 Dizziness and giddiness F33.0 Major depressive disorder, recurrent, mild F41.1 Generalized anxiety disorder E03.9 Hypothyroidism, unspecified M54.9 Dorsalgia, unspecified E55.9 Vitamin D deficiency, unspecified S52.511D Disp fx of r radial styloid pro, 7thD M25.552 Pain in LEFT hip 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 Office Visit 11/26/2018 [facility] Haroon, E78.5 Hyperlipidemia, 2:30p [facility] Ramirez Ritchie MD unspecified K21.9 Gastro-esophageal [...] pro, 7thD E55.9 Vitamin D deficiency, unspecified Z68.26 Body mass index (BMI) 26.0-26.9, adult Office Visit 10/26/2018 [facility] Haroon, E78.5 Hyperlipidemia, 1:30p [facility] Ramirez Ritchie MD unspecified K21.9 Gastro-esophageal reflux disease without esophagitis M15.0 Primary generalized (osteo)arthritis M81.0 Age-related osteoporosis w/o current pathological fracture M54.9 Dorsalgia, unspecified R42 Dizziness and giddiness F33.0 Major depressive disorder, recurrent, mild E03.9 Hypothyroidism, unspecified E55.9 Vitamin D deficiency, unspecified Assessments Date Code Description Provider 02/26/2019 E78.5 Hyperlipidemia, unspecified Ramirez Patiño MD 02/26/2019 K21.9 Gastro-esophageal reflux disease without Ramirez Patiño MD esophagitis 02/26/2019 M15.0 Primary generalized (osteo)arthritis Ramirez Patiño MD 02/26/2019 M81.0 Age-related osteoporosis without current Ramirez Patiño MD pathological fractu 02/26/2019 M85.80 Other specified disorders of bone density Ramirez Patiño MD and structure, unspecified site 02/26/2019 R42 Dizziness and giddiness Ramirez Patiño MD 02/26/2019 F33.0 Major depressive disorder, recurrent, Ramirez Patiño MD mild 02/26/2019 F41.1 Generalized anxiety disorder Ramirez Patiño MD 02/26/2019 E03.9 Hypothyroidism, unspecified Ramirez Patiño MD 02/26/2019 M54.9 Dorsalgia, unspecified Ramirez Patiño MD 02/26/2019 E55.9 Vitamin D deficiency, unspecified Ramirez Patiño MD 01/14/2019 E78.5 Hyperlipidemia, unspecified Ramirez Patiño MD 01/14/2019 K21.9 Gastro-esophageal reflux disease without Ramirez Patiño MD esophagitis 01/14/2019 M15.0 Primary generalized (osteo)arthritis Ramirez Patiño MD 01/14/2019 M81.0 Age-related osteoporosis without current Ramirez Patiño MD pathological fractu 01/14/2019 M85.80 Other specified disorders of bone density Ramirez Patiño MD and structure, unspecified site 01/14/2019 R42 Dizziness and giddiness Ramirez Patiño MD 01/14/2019 F33.0 Major depressive disorder, recurrent, Ramirez Patiño MD mild 01/14/2019 F41.1 Generalized anxiety disorder Ramirez Patiño MD 01/14/2019 E03.9 Hypothyroidism, unspecified Ramirez Patiño MD 01/14/2019 M54.9 Dorsalgia, unspecified Ramirez Patiño MD 01/14/2019 E55.9 Vitamin D deficiency, unspecified Ramirez Patiño MD 01/14/2019 S52.511D Displaced fracture of RIGHT radial Ramirez Patiño MD styloid process, subsequent encounter for closed fracture with routine healing 01/14/2019 M25.552 Pain in LEFT hip Ramirez Patiño MD 01/14/2019 M26.69 Other specified disorders of Ramirez Patiño MD temporomandibular joint 01/13/2019 M81.0 Age-related osteoporosis without current Infusion, Schedule pathological fractu 11/26/2018 E78.5 Hyperlipidemia, unspecified Ramirez Patiño MD 11/26/2018 K21.9 Gastro-esophageal reflux disease without Ramirez Patiño MD esophagitis 11/26/2018 M15.0 Primary generalized (osteo)arthritis Ramirez Patiño MD 11/26/2018 M81.0 Age-related osteoporosis without current Ramirez Patiño MD pathological fractu 11/26/2018 M54.9 Dorsalgia, unspecified Ramirez Patiño MD 11/26/2018 M85.80 Other specified disorders of bone density Ramirez Patiño MD and structure, unspecified site 11/26/2018 R42 Dizziness and giddiness Ramirez Patiño MD 11/26/2018 F33.0 Major depressive disorder, recurrent, Ramirez Patiño MD mild 11/26/2018 F41.1 Generalized anxiety disorder Ramirez Patiño MD 11/26/2018 E03.9 Hypothyroidism, shaniified Ramirez Patiño MD 11/26/2018 S52.511D Displaced fracture of RIGHT radial Ramirez Patiño MD styloid process, subsequent encounter for closed fracture with routine healing 11/26/2018 E55.9 Vitamin D deficiency, unspecified Ramirez Patiño MD 11/26/2018 Z68.26 Body mass index (BMI) 26.0-26.9, adult Ramirez Patiño MD 10/26/2018 E78.5 Hyperlipidemia, unspecified Ramirez Patiño MD 10/26/2018 K21.9 Gastro-esophageal reflux disease without Ramirez Patiño MD esophagitis 10/26/2018 M15.0 Primary generalized (osteo)arthritis Ramirez Patiño MD 10/26/2018 M81.0 Age-related osteoporosis without current Ramirez Patiño MD pathological fractu 10/26/2018 M54.9 Dorsalgia, Ramirez Mcfarland MD 10/26/2018 R42 Dizziness and giddiness Ramirez Patiño MD 10/26/2018 F33.0 Major depressive disorder, recurrent, Ramirez Patiño MD mild 10/26/2018 E03.9 Hypothyroidism, unspecified Ramirez Patiño MD 10/26/2018 E55.9 Vitamin D deficiency, unspecified Ramirez Patiño MD 10/19/2018 E78.5 Hyperlipidemia, unspecified Ramirez Patiño MD 10/19/2018 E78.5 Hyperlipidemia, unspecified Loc V1 Nurse Blood 10/19/2018 E55.9 Vitamin D deficiency, unspecified Ramirez Patiño MD 10/19/2018 E55.9 Vitamin D deficiency, unspecified Loc V1 Nurse Blood 10/19/2018 E03.9 Hypothyroidism, unspecified Ramirez Patiño MD 10/19/2018 E03.9 Hypothyroidism, unspecified Loc V1 Nurse Blood 10/19/2018 E78.5 Hyperlipidemia, unspecified [facility] 10/19/2018 E55.9 Vitamin D deficiency, unspecified [facility] 10/19/2018 E03.9 Hypothyroidism, unspecified [facility] Plan of Treatment Future Appointment(s):04/12/2019 10:00 am - Ramirez Patiño MD at [facility]07/14/2019 11:30 am - Infusion, Schedule at Infusion [id number] - Ramirez Patiño MDE78.5 Hyperlipidemia, unspecifiedComments:Labs reviewed [...] continue Calcium+vitamin D and use OTC medication PRN for pain.M85.80 Oth disrd of bone density and structure, unspecified siteComments:Patient advised to continue Calcium+vitamin D and use OTC medication PRN for pain.R42 Dizziness and giddinessComments:She has been following with Dr. Pinedo, neurologist on regular basis. Dr. Pinedo advised her to start physical therapy. We will continue to monitor.F33.0 Major depressive disorder, recurrent, mildComments:Condition reviewed in detail, the patient's mood is stable at present with current medication regimen, will continue the same. We will continue to monitor.F41.1 Generalized anxiety disorderComments:Stable, will continue current medications.E03.9 Hypothyroidism, unspecifiedComments:The patient was advised to continue on current medication regimen. We will need to monitor her TSH periodically.M54.9 Dorsalgia, unspecifiedComments:Continue on current medications. Followed by Orthopedist. Will continue to monitor.E55.9 Vitamin D deficiency, unspecifiedComments:We will continue to monitor through blood work periodically.AllNew Medication:Myrbetriq 50 mg - 1 by mouth every dayFollow up: The patient will follow-up with me in six weeks for reevaluation. Functional Status Description No Information Available Mental Status Description No Information Available Referrals Description No Information Available
[2019-04-18 12:37] VITALS: BP 144/78
--- NOTE | 2019-04-18 13:32 | UC ---
Lower Extremity/Ankle HPI - HPI Summary HPI Summary: 79-year-old woman comes in with a chief complaint of right great toe pain. Started 3 weeks ago after she stubbed her toe. Stubbed her toe several times. Pain is continued despite 3 weeks. No skin break. Pain is worse with weightbearing. No history of gout. - History of Current Complaint Chief Complaint: UCSkin Stated Complaint: RIGHT GREAT TOE CONCERN Time Seen by Provider: 04/18/19 13:16 Pain Intensity: 4 - Allergies/Home Medications Allergies/Adverse Reactions: Allergies Allergy/AdvReac Type Severity Reaction Status Date / Time Penicillins Allergy Rash Verified 04/18/19 12:31 PMH/Surg Hx/FS Hx/Imm Hx Previously Healthy: Yes Endocrine History: Hypothyroidism - Surgical History Surgical History: Yes Surgery Procedure, Year, and Place: BACK SX FOR SPINAL CYST. LAMINECTOMY. HYSTERECTOMY. APPENDIX - Family History Known Family History: Negative: Hypertension, Diabetes - Social History Alcohol Use: None Substance Use Type: None Smoking Status (MU): Former Smoker When Did the Patient Quit Smoking/Using Tobacco: 35 YRS AGO Review of Systems All Other Systems Reviewed And Are Negative: Yes Constitutional: Positive: Negative Skin: Positive: Negative Eyes: Positive: Negative ENT: Positive: Negative Respiratory: Positive: Negative Cardiovascular: Positive: Negative Gastrointestinal: Positive: Negative Motor: Positive: Negative Neurovascular: Positive: Negative Musculoskeletal: Positive: Other: - SEE HPI Neurological: Positive: Negative Psychological: Positive: Negative Is Patient Immunocompromised?: No Physical Exam Triage Information Reviewed: Yes Appearance: Well-Appearing, No Pain Distress, Well-Nourished Vital Signs: Initial Vital Signs Temp 97.6 F 04/18/19 12:33 Pulse 81 04/18/19 12:33 Resp 16 04/18/19 12:33 BP 144/78 04/18/19 12:33 Pulse Ox 100 04/18/19 12:33 Vital Signs Reviewed: Yes Eye Exam: Normal Eyes: Positive: Conjunctiva Clear Neck: Positive: Supple Respiratory: Positive: No respiratory distress Musculoskeletal: Positive: Strength Intact, ROM Intact, Other: - Right great toe is tender to palpation on the dorsum. No erythema it's not hot to touch there is no skin break. The rest of the foot is nontender to palpation. Normal capillary refill normal sensation. Neurological: Positive: Alert Psychological: Positive: Age Appropriate Behavior Skin Exam: Normal Lower Extremity Course/Dx - Course Course Of Treatment: Electro Mechanic: Malron Hook, ([id number]) Melting Furnace Skimmer: LORE (LORE) Report Date: 04/18/2019 13:19:00 Report Status: Final Start of Report Content Patient Name: HANNAH MULLINS Medical Record#: [id number] Ordering Physician: Nathaniel Hernandez MD Acct.#: [id number] : 1940 Age : 79 Sex: F [place] [facility] [place] Date: 04/18/19 1319 ADM Status : REG ER Order Information: TOE RIGHT GREAT Accession Number: [id number] CPT: 72595 Clinical history: Stubbed right toe. COMPARISON: None. TECHNIQUE: 3 radiographic views of the right first toe were obtained. FINDINGS: The soft tissues are unremarkable. The bones are osteopenic.. No fracture is identified. Anatomic alignment is maintained. There is mild osteoarthropathy of the right IP and MTP. IMPRESSION: 1. No fracture or traumatic malalignment of the right first toe. 2. Osteopenia. 3. Mild osteoarthropathy as above. <Electronically signed by Marlon Hook MD in OV> 04/18/19 1345 Dictated By: Marlon Hook MD Dictated Date/Time: 04/18/19 134 Transcribed Date/Time: 04/18/19 134 Copy to: CC:Ramirez Patiño MD; Nathaniel Hernandez MD Imaging - [facility] Imaging [facility] [address] [place] [address] ph ([phone]) ph ([phone]) ph ([phone]) ==== End of Report Content I discussed the x-rays with the patient. No fracture seen. Pain is primarily in the DIP of the right great toe. The toes not hot to touch therefore I'm not concerned with gout or infection at this time. Plan is ibuprofen eyes. Patient was placed in a postop shoe by nursing and clinic patient Norvasc intact after placement of the postop shoe. Follow-up with orthopedics or sports medicine. - Differential Dx/Diagnosis Provider Diagnosis: Pain of right great toe Discharge ED - Sign-Out/Discharge Documenting (check all that apply): Patient Departure All imaging exams completed and their final reports reviewed: Yes - Discharge Plan Condition: Stable Disposition: HOME Patient Education Materials: Swollen Joint (ED) [facility] - Chong Sosa MD [Medical Doctor] - [facility] [Provider Group] Additional Instructions: FOLLOW UP WITH ORTHOPEDICS, DR SOSA, OR SPORTS MEDICINE. TAKE IBUPROFEN 400MG EVERY 6 HOURS NEEDED FOR PAIN. GET REEVALUATED SOONER IF NOT IMPROVING OR YOUR CONDITION WORSENS OR ANY QUESTIONS OR CONCERNS. - Billing Disposition and Condition Condition: STABLE Disposition: Home
== END 2019-04-18 14:11 | disposition home or self-care (01) ==
LOC: UCCORT 12:08
DX: M79.674 Pain in right toe(s) (principal); Z88.0 Allergy status to penicillin; Z87.891 Personal history of nicotine dependence
CPT/HCPCS: 99211; G0463